=== PATIENT | male | born 1955 | race Caucasian/White ===

== ENCOUNTER 2021-12-01 11:03 | Outpatient (REF) | payer SELFPAY ==
[2021-12-01 11:09] LABS: MANUAL DIFF FLAG NO
[2021-12-01 11:24] LABS: Basophils Absolute Auto 0.1 X10*3/uL (0.0-0.2); Basophils Percent Auto 0.8 % (0-2); Eosinophils Absolute Auto 0.6 X10*3/uL (0.0-0.4); Eosinophils Percent Auto 5.9 % (0-4); Hemoglobin 14.7 g/dl (14.0-18.0); Imm Gran Abs Auto 0.03 X10*3/uL (0.00-0.03); Imm Gran Pct Auto 0.3 % (0.0-0.4); Lymphocytes Percent Auto 20.1 % (20-40); Mean Corpuscular HGB Conc 32.7 g/dl (31.0-36.0); Mean Corpuscular Hemoglobin 30.3 pg (27.0-33.0); Mean Corpuscular Volume 92.8 fL (80.0-98.0); Mean Platelet Volume 12.5 fL (9.4-12.4); Monocytes Percent Auto 10.4 % (2-11); Neutrophils Absolute Auto 6.1 x10*3/uL (2.0-8.3); Neutrophils Percent Auto 62.5 % (45-73); Platelet Count 237 X10*3/uL (160-400); Red Blood Count 4.85 X10*6/uL (4.60-5.80); Red Cell Distribution Width 12.5 % (11.0-16.0); White Blood Count 9.8 X10*3/uL (4.8-10.8)
[2021-12-01 11:34] LABS: Estimated Average Glucose 111 mg/dL; Hemoglobin A1c % 5.5 %
[2021-12-01 11:48] LABS: Appearance Urine CLEAR; Color Urine STRAW; Glucose Urine UA NEG (NEG); Leukocyte Esterase Urine NEG (NEG); Nitrite Urine NEG (NEG); Urine Blood NEG (NEG); Urine Ketones NEG (NEG); Urine Protein NEG (NEG-TRACE)
[2021-12-01 12:04] LABS: Creatinine Urine 66.58 mg/dL; Microalbum/Creatinine Ratio Ur 10.5 ug/mg cr
[2021-12-01 12:18] LABS: Alanine Aminotransferase 17 U/L (0-40); Albumin Level 3.8 g/dL (3.5-5.0); Alkaline Phosphatase 68 U/L (39-117); Anion Gap 15 (12-20); Aspartate Amino Transferase 20 U/L (5-37); Bilirubin Total 0.4 mg/dL (0.0-1.0); Blood Urea Nitrogen 20 mg/dL (9-16); Carbon Dioxide 23 mmol/L (22-29); Chloride 106 mmol/L (96-108); Estimated Glomerular Filt Rate > 60; Glucose Fasting 100 mg/dL (60-99); Potassium 4.6 mmol/L (3.3-5.1); Sodium 139 mmol/L (135-145); Total Protein 6.7 g/dL (6.5-8.0)
== END 2021-12-01 11:04 | disposition home or self-care (01) ==
LOC: HO.LNP 11:03
PROVIDERS: Visit Provider Internal Medicine
DX: Z00.00 Encounter for general adult medical examination without abnormal findings (principal); Z12.5 Encounter for screening for malignant neoplasm of prostate; I10 Essential (primary) hypertension; R73.03 Prediabetes
CPT/HCPCS: 80053; 81003; 82043; 83036; 84153; 85025

== ENCOUNTER 2022-11-30 11:42 | Outpatient (REF) | payer MEDICAID, SELFPAY ==
[2022-11-30 11:46] LABS: MANUAL DIFF FLAG NO
[2022-11-30 12:17] LABS: Basophils Absolute Auto 0.1 X10*3/uL (0.0-0.2); Eosinophils Absolute Auto 0.7 X10*3/uL (0.0-0.4); Eosinophils Percent Auto 6.8 % (0-4); Hematocrit 48.6 % (42.0-52.0); Imm Gran Abs Auto 0.04 X10*3/uL (0.00-0.03); Imm Gran Pct Auto 0.4 % (0.0-0.4); Lymphocytes Absolute Auto 2.3 X10*3/uL (1.2-4.9); Lymphocytes Percent Auto 23.5 % (20-40); Mean Corpuscular HGB Conc 32.9 g/dl (31.0-36.0); Mean Corpuscular Hemoglobin 30.4 pg (27.0-33.0); Mean Corpuscular Volume 92.2 fL (80.0-98.0); Mean Platelet Volume 11.9 fL (9.4-12.4); Monocytes Percent Auto 10.1 % (2-11); Neutrophils Absolute Auto 5.8 x10*3/uL (2.0-8.3); Neutrophils Percent Auto 58.2 % (45-73); Platelet Count 242 X10*3/uL (160-400); Red Blood Count 5.27 X10*6/uL (4.60-5.80); Red Cell Distribution Width 12.8 % (11.0-16.0); White Blood Count 9.9 X10*3/uL (4.8-10.8)
[2022-11-30 12:20] LABS: Appearance Urine Clear; Color Urine Yellow; Glucose Urine UA Negative (Negative); Leukocyte Esterase Urine Negative (Negative); Nitrite Urine Negative (Negative); PH 6.5 (5.0-9.0); Specific Gravity - Urine 1.015 (1.005-1.025); Urine Blood Negative (Negative); Urine Ketones Negative (Negative); Urine Protein Negative (Neg-Trace)
[2022-11-30 12:46] LABS: Alanine Aminotransferase 14 U/L (0-40); Albumin Level 3.9 g/dL (3.5-5.0); Alkaline Phosphatase 59 U/L (39-117); Anion Gap 11 (12-20); Aspartate Amino Transferase 17 U/L (5-37); Blood Urea Nitrogen 12 mg/dL (9-16); Calcium 9.2 mg/dL (8.4-10.2); Carbon Dioxide 30 mmol/L (22-29); Chloride 104 mmol/L (96-108); Cholesterol 183 mg/dL; Estimated Glomerular Filt Rate > 60; Glucose Fasting 112 mg/dL (60-99); HDL Cholesterol 51 mg/dL; LDL Cholesterol Calculated 111 mg/dl; Potassium 4.3 mmol/L (3.3-5.1); Sodium 141 mmol/L (135-145); Total Protein 6.6 g/dL (6.5-8.0); Triglycerides 106 mg/dL
[2022-11-30 12:59] LABS: Creatinine Urine 72.45 mg/dL
[2022-11-30 13:08] LABS: PSA,Total (Free>4and<10) 2.72 ng/mL (0.00-4.00)
[2022-11-30 14:01] LABS: Estimated Average Glucose 120 mg/dL; Hemoglobin A1c % 5.8 %
== END 2022-11-30 11:43 | disposition home or self-care (01) ==
LOC: HO.LNP 11:42
PROVIDERS: Visit Provider Internal Medicine
DX: Z12.5 Encounter for screening for malignant neoplasm of prostate (principal); I10 Essential (primary) hypertension; R73.03 Prediabetes
CPT/HCPCS: 80053; 80061; 81003; 82043; 83036; 84153; 85025

== ENCOUNTER 2023-04-08 16:10 | Outpatient (REF) | payer BC, SELFPAY ==
--- NOTE | ~2023-04-08 | XR_ITS ---
EXAMINATION: XR CHEST CLINICAL INFORMATION: Wheezing COMPARISON: None available. TECHNIQUE: 2 views of the chest were obtained. FINDINGS: The cardiac silhouette is slightly enlarged. This appears increased in size from 2012 exam. Hilar and mediastinal contours are unremarkable. The lungs are clear. No pleural effusion or pneumothorax. Degenerative changes of the spine. XR/XR chest 2V IMPRESSION: Slightly enlarged cardiac silhouette.
== END 2023-04-08 16:11 | disposition home or self-care (01) ==
LOC: HO.XRAY 16:10
PROVIDERS: PCP Internal Medicine; Visit Provider Internal Medicine
DX: R06.2 Wheezing (principal)
CPT/HCPCS: 71046

== ENCOUNTER 2023-05-21 12:53 | Outpatient (AMB) | payer BC, SELFPAY ==
[2023-05-21 13:01] VITALS: BP 114/70; PULSE 62; O2SAT 96; BMI 32.1
--- NOTE | 2023-05-21 13:01 | MHC.OFFVIS ---
Intake Vital Signs 05/21/23 13:01 Height 5 ft 7 in Weight 205 lb 0.478 oz BMI 32.1 BP 114/70 Blood Pressure Location Lt brachial Position Sitting Pulse 62 Pulse Source Pulse Oximeter Pulse Oximetry (%) 96 Oxygen Delivery Method Room Air Intake Visit Reasons: Wheezing Intake Note: New patient seen today for night time wheezing. Patient has reported Covid + in May 2022 and noticed the wheeze at bedtime. He was also diagnosed with afib in April of 2023. Reports he is physically active without any resp. distress. Radiology Equipment Servicer Required: No Biofuels Research Scientist: Biofuels Research Scientist offered & declined Accompanied by: Self / Same As Patient Allergies No Known Allergies [No Known Allergies*] Allergy (Unverified 07/25/20 15:24) bee sting Allergy (Unknown, Uncoded 05/21/23 13:09) swelling doritos chips Adverse Reaction (Unknown, Uncoded 05/21/23 13:09) lower extremity edema, rectal bleeding Medication List - Last Reconciled 05/21/23 by iCara Rehman LPN amlodipine 10 mg PO DAILY carvedilol 25 mg PO BID tamsulosin 0.4 mg PO BID valsartan-hydrochlorothiazide 320-12.5 mg 1 tab PO DAILY HPI Wheezing HPI Details Bradley is a pleasant 67 year old male, 20 year pipe smoker, with recent diagnosis of atrial fibrillation on xarelto. Today he presents for pulmonary evaluation. He was referred by PCP for wheezing which patient noticed after having COVID in September 2022. Patient states he only has wheezing at night when laying down. He was prescribed steroids in December with no change and antibiotics at the end of January with some improvements and notable decrease in wheeze. Previously he reported nightly wheezing and after antibiotics he states wheezing 2-3 times per week. He denies any other symptoms when wheezing occurs. He does state that with position changes the wheezing dissipates. At baseline he is quite active and denies any dyspnea. He reported issues with blood pressure control over the past years and now on multiple medication regimen with good control but has noticed bilateral lower extremity swelling over the past six weeks. He has an echo scheduled this afternoon and will follow up with cardiology at the end of June. He denies any personal or family history of lung conditions. 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 [facility] Social History (Updated 05/21/23 @ 13:14 by Ciara Rehman LPN) Tobacco use type: Pipe Years Smoked: 20 years Review of Systems Const Denies chills, Denies excessive sweating, Denies fever(s), Denies headache(s) and Denies night sweats Eyes Denies dry eyes, Denies irritation and Denies itchy eyes ENT Reports Normal hearing present, Denies headache(s), Denies nasal congestion, Denies nasal discharge, Denies post nasal drip and Denies sore throat Card Denies chest pain, Denies chest pain at rest, Denies chest pain with activity, Denies leg edema, Denies dyspnea, Denies dyspnea on exertion, Denies orthopnea and Denies paroxysmal nocturnal dyspnea Resp Denies chest congestion, Denies cough, Denies excessive phlegm production, Denies pain on inspiration, Denies pain with cough, Denies dyspnea, Denies dyspnea on exertion and Denies stridor Musc Denies myalgias Neuro Reports Normal hearing present and Denies headache(s) Endo Denies excessive sweating Jed/Lymph Denies lymphadenopathy Aller/Immun Denies itchy eyes and Denies seasonal rhinorrhea Physical Exam Vital Signs: Last Vital Signs Pulse 62 05/21/23 13:01 BP 114/70 05/21/23 13:01 Pulse Ox 96 05/21/23 13:01 Oxygen Delivery Method Room Air 05/21/23 13:01 BMI result Body Mass Index 32.1 Const General: cooperative, healthy appearing, comfortable, no acute distress, well developed and alert Orientation/consciousness: patient oriented x3 Limitations: no limitations HEENT Head: Yes normal to inspection, Yes normocephalic and Yes atraumatic Ears: hearing grossly normal bilaterally and external ears normal Eyes General: appearance normal, both eyes and all related structures Eyelids: Yes eyelids normal Sclerae: sclerae normal EOM: EOMs intact bilaterally Neck Neck: Yes normal visual inspection and Yes no lymphadenopathy Lymphatic: no lymphadenopathy noted Chest Chest palpation & inspection: normal inspection of the chest Resp Effort & Inspection: normal respiratory effort, able to speak in complete sentences, no audible wheezes, no cough, no stridor, not tachypneic, no tripod positioning and no use of accessory muscles Auscultation: clear to auscultation bilaterally Cardio Jugular venous distension: no JVD Rate: regular rate Rhythm: regular rhythm Skin Other: warm, dry General skin exam: no rashes or lesions noted Neuro General: patient oriented x3 Cranial nerves: Yes Normal hearing present Cognition (Neuro): normal cognition Gait exam (Neuro): Normal gait present Extrem Other: 1+ pitting edema bilateral lower extremities General: Yes normal to inspection, Yes capillary refill normal, Yes no clubbing, cyanosis or edema and Yes no pedal edema Psych Appearance: grossly normal and well kempt Speech and movement: Normal speech and movement present and Clear speech present Affect: normal affect Attitude: cooperative Thought process: Normal thought process present Thought content: Normal thought content present Insight: Good insight present (Psych) Judgement: Good judgement present (Psych) Assessment & Plan Assessment & Plan (1) Wheezing: Code(s): R06.2 - Wheezing (2) Personal history of tobacco use: Code(s): Z87.891 - Personal history of nicotine dependence Plan Will send Bradley for PFT to see if there is an obstructive defect that could explain wheezing and chest CT, given his 20 year smoking history. All questions answered and patient is in agreement of plan. Will follow up to review results. Orders: Orders CT chest wo IV con 05/21/23 Z87.891 - Personal history of nicotine dependence PFT pulmonary function test 05/21/23 R06.2 - Wheezing, Z87.891 - Personal history of nicotine dependence Coding Level of Care Code New Pt Level 4 (57852) Diagnoses Wheezing R06.2 Personal history of tobacco use Z87.891
== END 2023-05-21 13:41 | disposition home or self-care (01) ==
PROVIDERS: PCP Internal Medicine; Visit Provider Nurse Practitioner Family
DX: R06.2 Wheezing (principal); Z87.891 Personal history of nicotine dependence
CPT/HCPCS: 99204

== ENCOUNTER → 2023-05-21 14:09 | Outpatient (REF) | payer BC, SELFPAY ==
--- NOTE | 2023-05-21 14:11 | CA_ITS ---
Transthoracic Echocardiogram Patient (Last, First, Middle): Bradley Roque L Gender: Male Date of : 1955 Age: 67 Procedure Date: 05/21/2023 Procedure Type: Transthoracic Echocardiogram Location: OP Height: 170.18 cm Weight: 92.99 kg BSA: 2.04 m2 Heart Rate: bpm BP: 140 / 90 mmHg Chief Engineer Production: TO Referring MD: Javier Ramos MD Chemical Mixer: Deepak Shirley MD Symptoms: AFIB Study Quality: Fair ECG Rhythm: Atrial Fibrillation Conclusions: - 1. Normal LV ejection fraction with mild LVH with LVEF of 55 60% 2. Moderately dilated left atrium 3. Trivial aortic and mild mitral regurgitation 4. Mildly elevated right ventricular systolic pressure with mildly elevated right atrial pressures 5. Mildly dilated ascending aorta at 4.2 cm 6. No gross pericardial effusion Findings Left Ventricle Normal left ventricular size and systolic function. There is mildly increased left ventricular wall thickness. The visually estimated ejection fraction is between 55-60%. Diastolic function is indeterminate on the basis of available data. Right Ventricle Mildly increased right ventricular cavity size. There is normal right ventricular systolic function. Atria The left atrium is moderately dilated. There is no evidence of interatrial shunt. The right atrium is mildly dilated. Aortic Valve There is mild calcification of the aortic valve. There is no aortic valve stenosis. There is trace (trivial) aortic valve regurgitation. Mitral Valve There is mild anterior and posterior mitral leaflet thickening. There is mild mitral valve regurgitation. There is no mitral valve stenosis. Pulmonic Valve The pulmonic valve is likely normal. Tricuspid Valve Normal tricuspid valve structure. There is mild tricuspid valve regurgitation. Mildly elevated right atrial pressure. Mild pulmonary hypertension is present. Great Vessels The pulmonary artery was not well visualized. There is mild dilatation of the ascending aorta measuring 4.20 cm. Venous The inferior vena cava is moderately dilated and collapses greater than 50% with inspiration. Pericardium/Pleural There is no evidence of pericardial effusion. Prior Study Comparison No prior study available for comparison. Measurements 2D Linear Measurements IVSd: 1.34 0.6-0.9/0.6-1.0 cm LVIDd: 4.73 3.9-5.3/4.2-5.9 cm LVIDd Index: 2.32 2.4-3.2/2.2-3.1 cm/m2 LVIDs: 3.63 2.0-3.6 cm LVPWd: 1.17 0.7-1.1 cm LA Diam: 4.20 2.7-3.8/3.0-4.0 cm LAIDs Index: 2.06 1.5-2.3 cm/m2 LV Mass: 284.63 67-162/88-224 g LV Mass Index: 139.52 43-95/49-115 g/m2 LVOT Diam: 2.20 3.0+(-)1.3 cm 2D Systolic Function EF 4C: 55.20 >55% EF 2C: 55.10 >55% EF BiP: 55.90 >55% Mitral Valve MV Pk E: 0.63 MV Decel Time: 195.00 E'Lateral: 10.80 E'Medial: 5.77 E/E' Med: 11.00 E/E' Lat: 5.90 PHT: 57.00 MVA PHT: 3.86 Decel Davis: 3.25 Aortic Valve AoV Pk Thaddeus: 1.07 AoV Mn Thaddeus: 0.76 AoV VTI: 0.24 AoV Pk Grad: 5.00 Aov Mn Grad: 3.00 JAYY Cont.VTI: 2.12 LVOT LVOT Pk Thaddeus: 0.58 LVOT Mn Thaddeus: 0.39 LVOT VTI: 0.13 LVOT Pk Grad: 1.00 LVOT Mn Grad: 1.00 LVOT Diam: 2.20 LVOT Area: 3.80 Diastolic Function MV Pk E: 0.63 E'Medial: 5.77 E/E' Med: 11.00 E' Laterial: 10.80 E/E' Lat: 5.90 Right Ventricle TAPSE (mm): 20.60 TVS' Thaddeus: 10.00 Tricuspid Valve TR Pk Thaddeus: 2.82 TR Pk Grad: 32.00 RA Press: 8.00 RVSP: 40.00 Great Vessels Aorta Sinus of Valsalva: 3.89 2.0-3.[address] [place]: 2.97 1.7-3.4 cm Ao Asc: 4.20 2.1-3.4 cm Updated in Other Vendor System with Status of Final Deepak Shirley MD electronically signed on 05/22/2023 2:33:19 PM with status of Final
== END ==
LOC: HO.CARD 14:09
PROVIDERS: PCP Internal Medicine; Visit Provider Internal Medicine
DX: I48.91 Unspecified atrial fibrillation (principal); R06.2 Wheezing; Z87.891 Personal history of nicotine dependence
CPT/HCPCS: 93306

== ENCOUNTER → 2023-05-21 14:11 | Outpatient (BNV) | payer BC, SELFPAY | PROVIDERS: PCP Internal Medicine; Visit Provider Internal Medicine Cardiovascular Disease | DX: I34.0 Nonrheumatic mitral (valve) insufficiency (principal); I48.91 Unspecified atrial fibrillation | CPT/HCPCS: 93306 ==

== ENCOUNTER 2023-05-28 08:32 | Outpatient (REF) | payer BC, SELFPAY ==
--- NOTE | 2023-05-28 09:27 | PFT_ITS ---
FLOWS: 1. FEV1 of 110% of predicted at 3.45 L. 2. FVC 100% of predicted at 4.10 L. 3. FEV1 to FVC ratio of 0.84. 4. No bronchodilator response. LUNG VOLUMES: 1. Total lung capacity 101% of predicted at 6.49 L. 2. Residual volume 96% of predicted at 2.13 L. 3. Slow vital capacity 103% of predicted at 4.36 L. 4. Expiratory reserve volume 39% of predicted at 0.45 L. 5. Diffusion capacity is normal. IMPRESSION: No obstructive or restrictive ventilatory defect. No bronchodilator response. Decreased expiratory reserve volume suggests extrathoracic restriction likely secondary to abdominal obesity. Kwaku Figueredo MD AP/MODL / [id number]
== END 2023-05-28 08:33 | disposition home or self-care (01) ==
LOC: HO.RESP 08:32
PROVIDERS: PCP Internal Medicine; Visit Provider Nurse Practitioner Family
DX: R06.2 Wheezing (principal); Z87.891 Personal history of nicotine dependence
CPT/HCPCS: 94010; 94727; 94729

== ENCOUNTER 2023-05-28 09:21 | Outpatient (AMB) | payer BC, SELFPAY ==
[2023-05-28 09:32] VITALS: BP 120/70; PULSE 59; O2SAT 98; BMI 31.8
--- NOTE | 2023-05-28 09:32 | A.OFFVIS_ITS ---
Intake Vital Signs 05/28/23 09:32 Height 5 ft 7 in Weight 202 lb 13.204 oz BMI 31.8 BP 120/70 Blood Pressure Location Lt brachial Position Sitting Pulse 59 Pulse Source Pulse Oximeter Pulse Oximetry (%) 98 Oxygen Delivery Method Room Air Intake Visit Reasons: Same day PFT Mosaic Worker Required: No Investment Counselor: Investment Counselor offered & declined Accompanied by: Self / Same As Patient Allergies No Known Allergies [No Known Allergies*] Allergy (Unverified 05/28/23 09:36) bee sting Allergy (Unknown, Uncoded 05/28/23 09:36) swelling doritos chips Adverse Reaction (Unknown, Uncoded 05/28/23 09:36) lower extremity edema, rectal bleeding Medication List - Last Reconciled 05/28/23 by Ciara Rehman LPN amlodipine 10 mg PO DAILY carvedilol 25 mg PO BID tamsulosin 0.4 mg PO BID valsartan-hydrochlorothiazide 320-12.5 mg 1 tab PO DAILY HPI Same day PFT HPI0 Details Bradley is a pleasant 67 year old male, 20 year pipe smoker, with recent diagnosis of atrial fibrillation on xarelto. He was referred by PCP for w heezing which patient noticed after having COVID in September 2022 that is only present in supine position. He was prescribed steroids in December with no change and antibiotics at the end of January with some improvements and notable decrease in wheeze. Today he is here to review PFT results. He continues to deny any shortness of breath or decrease in activity. He again noted bilateral lower extremity edema. He had an echocardiogram last week and has follow up scheduled with cardiology in June to review. He did note that his PCP was going to increase in HCTZ. [facility] Social History Tobacco use type: Pipe Years Smoked: 20 years Review of Systems Const Denies chills, Denies excessive sweating, Denies fever(s), Denies headache(s) and Denies night sweats Eyes Denies dry eyes, Denies irritation and Denies itchy eyes ENT Reports Normal hearing present, Denies headache(s), Denies nasal congestion, Denies nasal discharge, Denies post nasal drip and Denies sore throat Card Denies chest pain, Denies chest pain at rest, Denies chest pain with activity, Denies dyspnea, Denies dyspnea on exertion, Denies orthopnea and Denies paroxysmal nocturnal dyspnea Resp Denies chest congestion, Denies cough, Denies excessive phlegm production, Denies pain on inspiration, Denies pain with cough, Denies dyspnea, Denies dyspnea on exertion and Denies stridor Musc Denies myalgias Neuro Reports Normal hearing present and Denies headache(s) Endo Denies excessive sweating Jed/Lymph Denies lymphadenopathy Aller/Immun Denies itchy eyes and Denies seasonal rhinorrhea Physical Exam Vital Signs: Last Vital Signs Pulse 59 05/28/23 09:32 BP 120/70 05/28/23 09:32 Pulse Ox 98 05/28/23 09:32 Oxygen Delivery Method Room Air 05/28/23 09:32 BMI result Body Mass Index 31.8 Const General: cooperative, healthy appearing, comfortable, no acute distress, well developed and alert Orientation/consciousness: patient oriented x3 Limitations: no limitations HEENT Head: Yes normal to inspection, Yes normocephalic and Yes atraumatic Ears: hearing grossly normal bilaterally and external ears normal Eyes General: appearance normal, both eyes and all related structures Eyelids: Yes eyelids normal Sclerae: sclerae normal EOM: EOMs intact bilaterally Neck Neck: Yes normal visual inspection and Yes no lymphadenopathy Lymphatic: no lymphadenopathy noted Chest Chest palpation & inspection: normal inspection of the chest Resp Effort & Inspection: normal respiratory effort, able to speak in complete sentences, no audible wheezes, no cough, no stridor, not tachypneic, no tripod positioning and no use of accessory muscles Auscultation: clear to auscultation bilaterally Cardio Jugular venous distension: no JVD Rate: regular rate Rhythm: regular rhythm Skin Other: warm, dry General skin exam: no rashes or lesions noted Neuro General: patient oriented x3 Cranial nerves: Yes Normal hearing present Cognition (Neuro): normal cognition Gait exam (Neuro): Normal gait present Extrem Other: 1-2+ pitting edema bilateral lower extremities Psych Appearance: grossly normal and well kempt Speech and movement: Normal speech and movement present and Clear speech present Affect: normal affect Attitude: cooperative Thought process: Normal thought process present Thought content: Normal thought content present Insight: Good insight present (Psych) Judgement: Good judgement present (Psych) Results Reviewed Results Reviewed: Assessment & Plan Assessment & Plan (1) Wheezing: Code(s): R06.2 - Wheezing (2) Personal history of tobacco use: Code(s): Z87.891 - Personal history of nicotine dependence (3) Bilateral lower extremity edema: Code(s): R60.0 - Localized edema Plan Reviewed PFT results with patient, report above. No evidence of obstructive or restrictive pattern with normal lung volumes and normal DLCO. His symptoms are most likely related to underlying cardiac etiology. He has a follow up scheduled at the end of June with cardiology for consultation. At the last visit a chest CT was ordered due to his occupational exposure and smoking history, but has not been scheduled yet. Once performed patient will follow up to review results. All questions were answered and patient is in agreement of plan. Coding Level of Care Code Est Pt Level 4 (89581) Diagnoses Wheezing R06.2 Personal history of tobacco use Z87.891 Bilateral lower extremity edema R60.0
== END 2023-05-28 09:54 | disposition home or self-care (01) ==
PROVIDERS: PCP Internal Medicine; Visit Provider Nurse Practitioner Family
DX: R06.09 Other forms of dyspnea (principal)
CPT/HCPCS: 94060; 94727; 94729; 99214

== ENCOUNTER 2023-07-21 10:12 | Outpatient (AMB) | payer BC, SELFPAY ==
[2023-07-21 10:13] VITALS: BP 130/82; PULSE 63; BMI 31.8
--- NOTE | 2023-07-21 10:13 | MHC.OFFVIS ---
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: No Allergies No Known Allergies [No Known Allergies*] Allergy (Unverified 05/28/23 09:36) bee sting Allergy (Unknown, Uncoded 05/28/23 09:36) swelling doritos chips Adverse Reaction (Unknown, Uncoded 05/28/23 09:36) lower extremity edema, rectal bleeding Medication List - Last Reconciled 07/21/23 by Deepak Shirley MD amlodipine 10 mg PO DAILY carvedilol 25 mg PO BID rivaroxaban (Xarelto) 20 mg PO DAILY tamsulosin 0.4 mg PO BID valsartan-hydrochlorothiazide 160-12.5 mg 1 tab PO DAILY HPI HPI Comments History of Present Illness Details Thank you for referring Bradley in cardiology consultation today for newly detected persistent atrial fibrillation for last 2 months or so. He is a pleasant 67-year-old male with longstanding history of hypertension controlled with multiple medications. He is in excellent physical shape prior to getting COVID last May. He said he could do backpacking and exercise and climb mountains without any restriction except for he would notice some warm up. Being on carvedilol but once he was continuing to exercise he would feel well. Last year in May got COVID and subsequently started having respiratory symptoms of exertional shortness of breath. Initially for about 4-6 weeks he had significant symptoms. He also had intermittent wheezing. He was treated antibiotics and steroids. However symptoms persisted. He said he had multiple EKGs during that time and there was no evidence of atrial fibrillation. About 2 months ago he had EKG performed which showed atrial fibrillation which as per him is new onset. Never had this findings in the past. He subsequent echocardiogram showed normal LV ejection fraction 55-60% with mild LVH with moderate left atrial enlargement was mildly dilated ascending aorta 4.2 cm a mildly elevated right ventricle systolic pressure. Since being diagnosed with COVID is notice exertional shortness of breath when he goes up hill. With his routine other activities he does not get significant shortness of breath. Denies any orthopnea, PND, leg edema. Denies any exertional chest discomfort. Denies lightheadedness, syncope, irregular heartbeat, palpitations, fast heart rate. He was started on Xarelto 2 months ago when detected with AFib and has been taking it religiously since then. No bleeding issues or neurologic events [facility] Medical History (Updated 07/21/23 @ 10:47 by Deepak Shirley MD) HTN (hypertension) Persistent atrial fibrillation Social History Tobacco use type: Pipe Years Smoked: 20 years Review of Systems Const Denies chills, Denies daytime sleepiness, Denies fatigue, Denies fever(s), Denies frequent falls, Denies poor appetite, Denies snoring, Denies stops breathing during sleep, Denies weakness, Denies weight gain and Denies weight loss Eyes Denies loss of vision ENT Denies dizziness and Denies hearing loss Card Denies chest pain, Denies claudication, Denies leg edema, Denies lightheadedness, Denies palpitations, Denies dyspnea, Denies dyspnea on exertion and Denies orthopnea Resp Denies cough, Denies excessive phlegm production, Denies dyspnea, Denies dyspnea on exertion, Denies snoring and Denies wheezing GI Denies abdominal pain, Denies hematochezia, Denies change in bowel habits, Denies nausea and Denies vomiting Denies dysuria and Denies urinary frequency Musc Denies arthralgias, Denies muscle weakness, Denies numbness and Denies other (frequent falls) Skin/Breast Denies nail changes and Denies rash Neuro Denies Abnormal speech present, Denies dizziness, Denies frequent falls, Denies loss of vision, Denies memory loss, Denies numbness and Denies weakness Psych Denies depression and Denies memory loss Endo Denies fatigue and Denies palpitations Jed/Lymph Reports easy bruising and Reports other (anemia) Aller/Immun Denies wheezing Physical Exam Vital Signs: Last Vital Signs Pulse 63 07/21/23 10:13 BP 130/82 07/21/23 10:13 BMI result Body Mass Index 31.8 Const General: cooperative, comfortable, no acute distress, well developed, alert, awake, Physically active and well groomed Nutritional Appearance: average body habitus and well nourished Orientation/consciousness: patient oriented x3 Limitations: no limitations HEENT Head: Yes normocephalic and Yes atraumatic Neck Neck: Yes trachea midline, Yes supple and Yes no JVD Resp Effort & Inspection: normal respiratory effort Auscultation: clear to auscultation bilaterally Cardio Jugular venous distension: no JVD Rhythm: abnormal rhythm irregularly irregular Heart sounds: S1 normal heart sound present, S2 normal heart sound present, no click, no gallops, no murmurs and no rubs Peripheral pulses: Peripheral pulses 2+ throughout GI Auscultation: normal bowel sounds Skin General skin exam: no rashes or lesions noted Neuro General: patient oriented x3 and no focal motor deficits Speech: No Abnormal speech present Extrem General: Yes no clubbing, cyanosis or edema Psych Appearance: grossly normal Office Procedures EKG Details: EKG shows atrial fibrillation with controlled ventricular response with PVCs with right bundle-branch block and left axis deviation [id number], Complete Assessment & Plan Assessment & Plan (1) Persistent atrial fibrillation: Code(s): I48.19 - Other persistent atrial fibrillation Plan: Persistent atrial fibrillation in this well conditioned middle-aged man with symptoms of exertional shortness of breath. Atrial fibrillation was detected about 3 months ago and subsequent echocardiogram shows at least moderate left atrial enlargement. Duration of atrial fibrillation is exactly unclear but left atrial enlargement underlying may suggest that AFib might have been persistent for some months and/or left atrial enlargement could be related to longstanding hypertension. However given left atrial enlargement likelihood of pursuing rhythm control would be more difficult. This was discussed with him. I had a long discussion about pathophysiology of atrial fibrillation and subsequent complication related to long-term atrial fibrillation. We discussed about data to suggest that pursuing rhythm control approach at his age group in a new onset atrial fibrillation is more favorable for long-term outcomes. Given his left atrial enlargement he will require antiarrhythmic drug support. Will therefore start him on Multaq 400 mg b.i.d. at the same time reduce carvedilol to 12.5 mg b.i.d. due to negative chronotropic effect of Multaq therapy. Subsequently followed by synchronized cardioversion. We discussed the risks, benefits, alternatives to synchronized cardioversion. Understands agrees. Future treatment based on a response to cardioversion as well as symptom improvement. This was discussed in details with him. CHADSVASc score of 2 with left atrial enlargement, should pursue lifelong oral anticoagulation therapy. This was discussed with him. Continue Xarelto at current dose. Semi annual renal function test should be pursued. (2) HTN (hypertension): Code(s): I10 - Essential (primary) hypertension Plan: Hypertension which is long-term and currently on quadruple therapy for blood pressure management which is well controlled. For now recent carvedilol by half the dose. Advised to monitor blood pressure at home and maintain a log. A blood pressure starts rising can maximize valsartan hydrochlorothiazide therapy. Importance of good blood pressure control was discussed. Low-salt diet was discussed. (3) SOB (shortness of breath) on exertion: Code(s): R06.02 - Shortness of breath Plan: Shortness of breath on exertion in this gentleman with risk factors of hypertension, could be related to atrial fibrillation although he says his symptoms have improved since being diagnosed with atrial fibrillation which is a little surprising. However also could be due to ischemic heart disease. Once we were zoom sinus rhythm will proceed with exercise myocardial perfusion imaging. This was discussed with him in details. Follow up in the clinic in 6 weeks time with me. Orders: Orders Cardioversion 2 Weeks I48.19 - Other persistent atrial fibrillation CA stress test Today R06.02 - Shortness of breath ECG 3 day holter monitor 4 Weeks I48.19 - Other persistent atrial fibrillation NM cardiolite stress test 2 Weeks R06.02 - Shortness of breath, R07.9 - Chest pain, unspecified Medications: New dronedarone (Multaq) must administer with a meal/food 400 mg PO BID 60 tabs 2RF I48.19 - Other persistent atrial fibrillation Changed From carvedilol must administer with a meal/food 25 mg PO BID I48.19 - Other persistent atrial fibrillation To carvedilol must administer with a meal/food 12.5 mg PO BID I48.19 - Other persistent atrial fibrillation Coding Level of Care Code New Pt Level 4 (02545) Diagnoses Persistent atrial fibrillation I48.19 HTN (hypertension) I10 SOB (shortness of breath) on exertion R06.02 CPT Codes EKG - CPT: 91359-[id number], Complete ([id number])
== END 2023-07-21 10:51 | disposition home or self-care (01) ==
LOC: HO.HCSM 10:12
PROVIDERS: PCP Internal Medicine; Referring Provider Internal Medicine; Visit Provider Internal Medicine Cardiovascular Disease
DX: I48.19 Other persistent atrial fibrillation (principal); I10 Essential (primary) hypertension; R06.02 Shortness of breath
CPT/HCPCS: 93010; 99204

== ENCOUNTER 2023-07-21 13:10 | Outpatient (REF) | payer BC, SELFPAY ==
--- NOTE | ~2023-07-21 | CT_ITS ---
EXAMINATION: CT CHEST WITHOUT CONTRAST CLINICAL INFORMATION: History of nicotine dependence. COMPARISON: None available. TECHNIQUE: Multidetector volumetric CT imaging of the chest was done. Axial MIP volume rendering provided. Sagittal and coronal reformatted images were obtained. This CT examination was performed using dose optimization techniques as appropriate, variously including the following: *Automated exposure control *Adjustment of mA and/or kV according to patient size (this includes techniques or standardized protocols for targeted exams where dose is matched to indication/reason for exam; i.e. 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 LUNGS: The lungs are clear with no evidence of inflammation or nodules. Multiple benign, calcified granulomas are seen within the right upper and lower lobes (7:123, 165, 170 and 283). MEDIASTINUM: The thyroid is unremarkable. There is no thoracic aortic aneurysm. There are mild atherosclerotic calcifications of the great vessel origins and thoracic aorta. No mediastinal or hilar lymphadenopathy is seen. CORONARY ARTERY CALCIFICATION: Mild. PLEURA: There is no pleural effusion. No pleural mass or thickening. AXILLA: No lymphadenopathy. There is moderate bilateral gynecomastia. UPPER ABDOMEN: Unremarkable. OSSEOUS STRUCTURES: There is multi-level marked lower thoracic and moderate upper lumbar spondylosis. At T11-T12, there is degenerative disc disease, with vacuum phenomenon. No acute or aggressive osseous abnormality is seen. CT/CT chest wo IV con IMPRESSION: 1. There are benign, calcified right lung granulomas. 2. No noncalcified nodule is seen. 3. There is no mass, infiltrate or groundglass opacity. 4. There are degenerative changes of the thoracolumbar spine, most pronounced at T11-T12. 5. There is moderate bilateral gynecomastia. Fleischner guidelines were followed.
== END 2023-07-21 13:11 | disposition home or self-care (01) ==
LOC: HO.CT 13:10
PROVIDERS: PCP Internal Medicine; Visit Provider Nurse Practitioner Family
DX: I48.19 Other persistent atrial fibrillation (principal); R06.02 Shortness of breath; I10 Essential (primary) hypertension; Z87.891 Personal history of nicotine dependence
CPT/HCPCS: 71250; 93005

== ENCOUNTER 2023-08-04 11:45 | Day surgery (SDC) | payer BC, SELFPAY ==
[2023-08-02 14:58] VITALS: BMI 31.6
--- NOTE | 2023-08-03 08:43 | HO.ANESPROP2 ---
Documented by User: Criss Araujo NP 08/03/23 08:46 HPI - Anesthesia Eval Consult details Narrative: 68yo M for Cardioversion Xarelto for afib PMFSH Active Problems Active Problems: All Active Problems (Updated 07/21/23 @ 10:47 by Deepak Shirley MD) SOB (shortness of breath) on exertion (Acute) Bilateral lower extremity edema (Acute) Personal history of tobacco use (Acute) Wheezing (Acute) HTN (hypertension) (Acute) Persistent atrial fibrillation (Acute) Past Medical History Medical History (Updated 09/28/23 @ 09:12 by Deepak Shirley MD) Paroxysmal atrial fibrillation Persistent atrial fibrillation HTN (hypertension) Surgical History Surgical History History of anterior cruciate ligament surgery H/O colonoscopy Hx of repair of right rotator cuff Social History Patient Tobacco Use Status: Never used Tobacco Tobacco use type: Pipe Years Smoked: 20 years Meds Allergies Allergy/AdvReac Type Severity Reaction Status Date / Time bee pollen [bee stings] Allergy Intermediate Swelling Verified 09/29/23 15:06 doritos chips AdvReac Intermediate lower Uncoded 08/02/23 14:52 extremity edema, rectal bleeding Home Medications Medication Instructions Recorded Confirmed Last Taken Type tamsulosin 0.4 mg capsule 0.4 mg PO BID 05/21/23 09/28/23 08/03/23 History Exam Exam Date and Time: August 03, 2023 0843 Height,Weight and Vital Signs: Height 5 ft 7 in Weight 91.626 kg Narrative Narrative: EKG 07/2023 atrial fibrillation with controlled ventricular response with PVCs with right bundle-branch block and left axis deviation ECHO 05/2023 Conclusions: - 1. Normal LV ejection fraction with mild LVH with LVEF of 55 60% 2. Moderately dilated left atrium 3. Trivial aortic and mild mitral regurgitation 4. Mildly elevated right ventricular systolic pressure with mildly elevated right atrial pressures 5. Mildly dilated ascending aorta at 4.2 cm 6. No gross pericardial effusion Assessment and Plan Assessment Anesthesia Assessment: Chart Reviewed Documented by User: Kiet Desir MD 09/30/23 18:57 PMFSH Past Medical History Medical History (Updated 09/28/23 @ 09:12 by Deepak Shirley MD) Paroxysmal atrial fibrillation Persistent atrial fibrillation HTN (hypertension) Functional capacity: independent ambulation Family History Family history of problems with anesthesia: No Surgical History Surgical History History of anterior cruciate ligament surgery H/O colonoscopy Hx of repair of right rotator cuff History of Problems with Anesthesia: No Social History Patient Tobacco Use Status: Never used Tobacco Tobacco use type: Pipe Years Smoked: 20 years Meds Allergies Allergy/AdvReac Type Severity Reaction Status Date / Time bee pollen [bee stings] Allergy Intermediate Swelling Verified 09/29/23 15:06 doritos chips AdvReac Intermediate lower Uncoded 08/02/23 14:52 extremity edema, rectal bleeding Home Medications Medication Instructions Recorded Confirmed Last Taken Type tamsulosin 0.4 mg capsule 0.4 mg PO BID 05/21/23 09/28/23 08/03/23 History Exam Airway Mallampati Class: III Loose/Missing/Broken Teeth: Yes Assessment and Plan Assessment Anesthesia Assessment: Anesthesia Plan Discussed Final Anesthetic Review Family History of Problems with Anesthesia: No History of Problems with Anesthesia: No NPO: Yes ASA Class: IV Final Preanesthetic Review: Meds/Allgs Chart Reviewed, Consent Obtained/Reviewed and Anes Risks/Benef Reviewed Patient Risk: Intermediate Procedure Risk: Intermediate Anesthetic Plan Anesthetic Plan: MAC: and Agree w/ Assess. and Plan Disposition: Standard PACU
--- NOTE | 2023-08-04 08:57 | MHC.SHP ---
Pre-Procedural Eval Section A Date of Service: 08/04/23 The patient is an INPATIENT: No Changes since office visit: Yes Changes in Medication and Yes Patient answered all questions; No Cold of Flu in the past 2 weeks and No New Medical Problems The History & Physical has been completed within 30 days and I have reviewed it.: Yes Section B Chief Complaint: afib Allergies: Allergies Allergy/AdvReac Type Severity Reaction Status Date / Time bee sting Allergy Intermediate swelling Uncoded 08/02/23 14:52 doritos chips AdvReac Intermediate lower Uncoded 08/02/23 14:52 extremity edema, rectal bleeding Plan I have reviewed the history and physical and performed a pertinent physical examination on my patient. No changes have occurred unless specified. Time Spent With Patient Time: Total time managing care of this patient today ____ minutes.
[2023-08-04 12:00] VITALS: BMI 31.5
[2023-08-04 12:06] VITALS: BP 133/73; PULSE 57; RESP 18; TEMP 36.1; O2SAT 97
[2023-08-04] MEDS: Lactated Ringers 1,000 ML 50 ML IVCONT (12:20)
--- NOTE | 2023-08-04 13:44 | ECG_ITS ---
Test Reason : post cardioversion Blood Pressure : / mmHG Vent. Rate : 041 BPM Atrial Rate : 041 BPM P-R Int : 240 ms QRS Dur : 156 ms QT Int : 520 ms P-R-T Axes : 000 -69 -32 degrees QTc Int : 429 ms Marked sinus bradycardia with 1st degree A-V block Right bundle branch block Left anterior fascicular block Bifascicular block Abnormal ECG When compared with ECG of 20-MAR-2002 16:57, MO interval has increased (RBBB and left anterior fascicular block) is now Present Referred By: Deepak Shirley Electronically Signed By:ALYSIA CHRISTIANSEN
--- NOTE | 2023-08-04 13:56 | HO.CARDIVERS ---
Cardioversion Procedure Note Cardioversion Date of Procedure: Today Ordering Provider: Myself Performing Provider: Myself Indication for Procedure: New onset persistent atrial fibrillation Pre-Op Diagnosis: Same Post-Op Diagnosis: Same Performed with Transesophageal Echo: No Consent: Verbal and Written consent was obtained from the patient before starting and after confirming oral anticoagulation use. The patient was made aware of the risk of synchronized cardioversion including benefits and alternatives Procedure: After consent obtained, cardioversion pads were attached in anteroposterior configuration and the patient was sedated by the anesthesia team. Once adequate sedation achieved, patient was delivered 200 joules of biphasic synchronized energy in anteroposterior configuration Complications: None Impression: Successful conversion to sinus bradycardia Recommendations: 1. 12 lead EKG 2. Continue Multaq and Xarelto 3. Reduce carvedilol to 6.25 mg b.i.d. 4. Follow up in the office after Holter
[2023-08-04 13:57] VITALS: BP 125/69; PULSE 46; RESP 15; TEMP 36.4; O2SAT 98
[2023-08-04 14:00] VITALS: BP 128/75; PULSE 67; RESP 15; O2SAT 98
[2023-08-04 14:05] VITALS: BP 131/85; PULSE 42; RESP 15; O2SAT 98
[2023-08-04 14:10] VITALS: BP 130/78; PULSE 44; RESP 15; O2SAT 98
[2023-08-04 14:25] VITALS: BP 139/78; PULSE 54; RESP 16; TEMP 36.3; O2SAT 96
== END 2023-08-04 14:51 | disposition home or self-care (01) ==
PROVIDERS: PCP Internal Medicine; Visit Provider Internal Medicine Cardiovascular Disease
PROC: 5A2204Z Restoration of Cardiac Rhythm, Single (ICD-10-PCS; principal; 2023-08-04 13:20)
DX: I48.19 Other persistent atrial fibrillation (principal); I10 Essential (primary) hypertension; Z79.01 Long term (current) use of anticoagulants
CPT/HCPCS: 92960; 93005

== ENCOUNTER → 2023-08-04 11:45 | Outpatient (BNV) | payer BC, SELFPAY | PROVIDERS: PCP Internal Medicine; Visit Provider Internal Medicine Cardiovascular Disease | DX: I48.19 Other persistent atrial fibrillation (principal) | CPT/HCPCS: 92960 ==

== ENCOUNTER → 2023-08-19 08:50 | Outpatient (REF) | payer BC, SELFPAY ==
--- NOTE | ~2023-08-19 | NM_ITS ---
EXERCISE MYOCARDIAL PERFUSION STUDY INDICATION: Shortness of breath, atrial fibrillation, assess for coronary disease and ischemia TECHNIQUE: The patient was brought in for an exercise perfusion study on 08/19/2023. Patient performed exercise as per Td protocol and was injected 30 mCi of sestamibi once target heart rate was achieved. Images were obtained using the SPECT gamma camera interlaced with the gating device. Images were obtained in supine position. Resting perfusion study was performed on 08/23/2023. Patient was administered 30 mCi of sestamibi intravenously at rest. Images were then obtained in supine position. Images were processed with the software and compared side to side in short axis, horizontal long axis and vertical long axis views. Total DLP 88mGy-cm. FINDINGS: Raw images were reviewed. The stress perfusion study showed diminished tracer uptake along the inferior wall from the basal to mid portions. There is improvement with CT attenuation correction suggestive of diaphragmatic attenuation artifact. The gated study shows normal LV systolic function with calculated LVEF of 61%. LV cavity is dilated in size. The gated study shows normal wall thickening and contraction of segments. Resting study shows diminished tracer uptake in the basal part of inferior wall as well as the apical inferior wall. There is improvement with CT attenuation correction suggesting diaphragmatic attenuation artifact. Gating at rest reveals normal wall motion with ejection fraction at 65%. The findings are consistent with fixed inferior perfusion defect suggestive of diaphragmatic attenuation artifact. No clear reversible defects. NM/NM cardiolite stress test IMPRESSION: 1. Myocardial perfusion imaging study shows no clear evidence of any ischemia or infarction. Fixed inferior defect suspected to be from diaphragmatic attenuation artifact. 2. Gated LVEF is seen during stress and 65% during rest. LV cavity appears dilated. 3. Transient ischemic dilatation not present. EKG component of the test reported separately.
--- NOTE | 2023-08-19 08:54 | CA_ITS ---
Acquisition Time: 2023-08-19 08:52:32 Total Exercise Time: 00:09:29 Test Indications: Dyspnea AFIB Medications: AMLODIPINE CARVEDILOL XARELTO TAMSULOSIN VALSARTAN/HCTZ Protocol: AYLEEN Max HR: 121 BPM 78% of Pred: 154 BPM Max BP: 144/080 mmHG Max Work Load: 10.8 METS Exercise stress test exercise 9 min 29 sec of Ayleen protocol unable to record peak HR due to artifact and quick correction in recovery, approximately 79% MPHR, with isolated PVCs, and ventricular bigeminy, withoiut anginal symptoms, with normotensive response to exercise, without EKG changes noted, Nuclear images pending. Test reviewed with Dr. Contreras. Significant artifact during peak exercise and not interpretable. Referred By: Deepak Shirley Overread By: BERNARDINO PETE
--- NOTE | 2023-08-19 08:54 | HM_ITS ---
* Total monitoring time about 3 days. * Underlying rhythm is sinus. Average ventricular rate 51/Min. Range 34 to 96/Min. Strips have lot of artifact. * Frequent supraventricular ectopy with a burden of 1.6%. * Frequent ventricular ectopy with a burden of 4.3%. Occasional couplets, triplets, bigeminy, trigeminy. Short runs noted. Longest 6 beats. Monomorphic. * No significant pauses or AV blocks. * Patient marker used in association with PVCs. MTDD
== END ==
LOC: HO.CARD 08:50
PROVIDERS: PCP Internal Medicine; Visit Provider Internal Medicine Cardiovascular Disease
DX: R07.9 Chest pain, unspecified (principal); I48.19 Other persistent atrial fibrillation; R06.02 Shortness of breath
CPT/HCPCS: 78452; 93017; 93242; A9500

== ENCOUNTER → 2023-08-19 09:00 | Outpatient (BNV) | payer BC, SELFPAY | PROVIDERS: PCP Internal Medicine; Visit Provider Internal Medicine | DX: I47.10 Supraventricular tachycardia, unspecified (principal) | CPT/HCPCS: 78452; 93016; 93018; 93244 ==

== ENCOUNTER 2023-09-28 08:49 | Outpatient (AMB) | payer BC, SELFPAY ==
[2023-09-28 08:50] VITALS: BP 136/80; PULSE 51; BMI 31.1
--- NOTE | 2023-09-28 08:50 | A.OFFVIS_ITS ---
Intake Vital Signs 09/28/23 08:50 Height 5 ft 7 in Weight 198 lb 6.656 oz BMI 31.1 BP 136/80 Blood Pressure Location Lt brachial Position Sitting Pulse 51 Intake Visit Reasons: follow-up with ekg after cardioversion Intake Note: Follow-up with ekg after cardioversion/ slight chest pain last night. Core Analysis Operator Required: No Allergies bee sting Allergy (Intermediate, Uncoded 08/02/23 14:52) swelling doritos chips Adverse Reaction (Intermediate, Uncoded 08/02/23 14:52) lower extremity edema, rectal bleeding Medication List - Last Reconciled 09/28/23 by Deepak Shirley MD amlodipine 10 mg PO DAILY carvedilol (Coreg) 6.25 mg PO Q12H 90 days dronedarone (Multaq) 400 mg PO BID rivaroxaban (Xarelto) 20 mg PO DAILY tamsulosin 0.4 mg PO BID valsartan-hydrochlorothiazide 160-12.5 mg 1 tab PO .bid HPI HPI Comments History of Present Illness Details Bradley comes for follow-up. Status post cardioversion. Today's EKG shows sinus rhythm. Since I last saw him he says he is feeling better. He has had more energy and feeling less tired when he is doing certain work. That definitely shows improvement in his cardiac function. His stress test in August was within normal limits. At some chest discomfort last night at rest after eating. He denies any heart failure symptoms. No shortness of breath, orthopnea, PND. No lightheadedness, syncope. No bleeding issues or neurologic events. Takes all his medications. He said over the last 6 months that he was not doing his activity level he is noticing some fatigue but he says he is building on it. No exertional chest pain. [facility] Medical History (Updated 09/28/23 @ 09:12 by Deepak Shirley MD) Paroxysmal atrial fibrillation Persistent atrial fibrillation HTN (hypertension) Surgical History History of anterior cruciate ligament surgery H/O colonoscopy Hx of repair of right rotator cuff Social History Patient Tobacco Use Status: Never used Tobacco Tobacco use type: Pipe Years Smoked: 20 years Review of Systems Const Denies chills, Denies fatigue, Denies fever(s), Denies frequent falls, Denies weakness, Denies weight gain and Denies weight loss ENT Denies dizziness Card Denies chest pain, Denies leg edema, Denies lightheadedness, Denies palpitations, Denies dyspnea, Denies dyspnea on exertion, Denies orthopnea and Denies other (loss of consciousness) Resp Denies cough, Denies dyspnea and Denies dyspnea on exertion GI Denies hematochezia and Denies change in stool character Musc Denies abnormal gait, Denies muscle weakness, Denies numbness, Denies radiating pain into limb and Denies tingling Neuro Denies Abnormal speech present, Denies abnormal gait, Denies dizziness, Denies frequent falls, Denies numbness, Denies tingling and Denies weakness Endo Denies fatigue and Denies palpitations Physical Exam Vital Signs: Last Vital Signs Pulse 51 09/28/23 08:50 BP 136/80 09/28/23 08:50 BMI result Body Mass Index 31.1 Const General: cooperative, comfortable, no acute distress, well developed, alert, awake, Physically active and well groomed Nutritional Appearance: average body habitus and well nourished Orientation/consciousness: patient oriented x3 Limitations: no limitations HEENT Head: Yes normocephalic and Yes atraumatic Neck Neck: Yes trachea midline, Yes supple and Yes no JVD Resp Effort & Inspection: normal respiratory effort Auscultation: clear to auscultation bilaterally Cardio Jugular venous distension: no JVD Rate: regular rate and bradycardic Rhythm: regular rhythm Heart sounds: S1 normal heart sound present, S2 normal heart sound present, no click, no gallops, no murmurs and no rubs Peripheral pulses: Peripheral pulses 2+ throughout GI Auscultation: normal bowel sounds Skin General skin exam: no rashes or lesions noted Neuro General: patient oriented x3 and no focal motor deficits Speech: No Abnormal speech present Extrem General: Yes no clubbing, cyanosis or edema Psych Appearance: grossly normal Office Procedures EKG Details: EKG shows sinus bradycardia 51 beats per minute with PACs with bifascicular block with right bundle and left anterior fascicular block [id number], Complete Assessment & Plan Assessment & Plan (1) Paroxysmal atrial fibrillation: Code(s): I48.0 - Paroxysmal atrial fibrillation Plan: Paroxysmal atrial fibrillation with low-amplitude P waves on today's EKG suggestive atrial myopathy. Patient is feeling a lot better in normal rhythm suggesting that his symptoms were related to loss of AV synchrony. Continue aggressively rhythm control approach. We discussed about pursuing daily EKG monitoring on his own by smart phone based EKG device. He is willing to do the same. Continue risk factor modification with aggressive blood pressure control, see below. Continue Multaq. CHADSVASc score of 2. Continue full oral anticoagulation with Xarelto. Advised to maintain activity level as tolerated. Avoidance of stimulants was discussed. (2) HTN (hypertension): Code(s): I10 - Essential (primary) hypertension Plan: Hypertension which is well optimized on current medications. Importance of good blood pressure control was discussed to manage cardiovascular risk including risk of preventing recurrent atrial fibrillation. Low-salt diet was discussed. Given his age and risk factors advise coronary calcium score to assess for presence of coronary atherosclerosis to guide treatment. Complete smoking cessation was advised. Will follow up in the clinic in 6 months. Advise EKG through your office in 3 months Coding Level of Care Code Est Pt Level 4 (75675) Diagnoses Paroxysmal atrial fibrillation I48.0 HTN (hypertension) I10 CPT Codes EKG - CPT: 42799-[id number], Complete ([id number])
--- NOTE | 2023-09-28 08:50 | MHC.OFFVIS ---
Intake Vital Signs 09/28/23 08:50 Height 5 ft 7 in Weight 198 lb 6.656 oz BMI 31.1 BP 136/80 Blood Pressure Location Lt brachial Position Sitting Pulse 51 Intake Visit Reasons: follow-up with ekg after cardioversion Allergies bee sting Allergy (Intermediate, Uncoded 08/02/23 14:52) swelling doritos chips Adverse Reaction (Intermediate, Uncoded 08/02/23 14:52) lower extremity edema, rectal bleeding Medication List - Last Reconciled 09/28/23 by Deepak Shirley MD amlodipine 10 mg PO DAILY carvedilol (Coreg) 6.25 mg PO Q12H 90 days dronedarone (Multaq) 400 mg PO BID rivaroxaban (Xarelto) 20 mg PO DAILY tamsulosin 0.4 mg PO BID valsartan-hydrochlorothiazide 160-12.5 mg 1 tab PO .bid PFSH Medical History (Updated 09/28/23 @ 09:12 by Deepak Shirley MD) Paroxysmal atrial fibrillation Persistent atrial fibrillation HTN (hypertension) Surgical History History of anterior cruciate ligament surgery H/O colonoscopy Hx of repair of right rotator cuff Patient Tobacco Use Status: Never used Tobacco Tobacco use type: Pipe Years Smoked: 20 years Review of Systems Const Denies chills, Denies fatigue, Denies fever(s), Denies frequent falls, Denies weakness, Denies weight gain and Denies weight loss ENT Denies dizziness Card Denies chest pain, Denies leg edema, Denies lightheadedness, Denies palpitations, Denies dyspnea, Denies dyspnea on exertion, Denies orthopnea and Denies other (loss of consciousness) Resp Denies cough, Denies dyspnea and Denies dyspnea on exertion GI Denies hematochezia and Denies change in stool character Musc Denies abnormal gait, Denies muscle weakness, Denies numbness, Denies radiating pain into limb and Denies tingling Neuro Denies abnormal gait, Denies dizziness, Denies frequent falls, Denies numbness, Denies tingling and Denies weakness Endo Denies fatigue and Denies palpitations Physical Exam Vital Signs: Last Vital Signs Pulse 51 09/28/23 08:50 BP 136/80 09/28/23 08:50 BMI result Body Mass Index 31.1 Office Procedures EKG Details: EKG shows sinus bradycardia 51 beats per minute with PACs with bifascicular block with right bundle and left anterior fascicular block. Low-amplitude P waves suggestive of atrial myopathy [id number], Complete Assessment & Plan Assessment & Plan (1) Paroxysmal atrial fibrillation: Code(s): I48.0 - Paroxysmal atrial fibrillation Plan: Paroxysmal atrial fibrillation which appears to be structural in nature related to longstanding hypertension. Patient is doing well with rhythm control approach and feels a lot improved symptoms and exercise capacity. Continue to pursue aggressive rhythm control approach. We discussed about management of atrial fibrillation and rhythm control especially in structural AFib and requirement of antiarrhythmic drug support. He understands and agrees. He will follow-up EKG which is required in 3 months through your office. Will follow up in the clinic in 6 months time. Hopefully over time with LV positive remodeling and improvement in atrial myopathy. This was discussed with him. Continue aggressive control blood pressure. Continue full oral anticoagulation, currently on Xarelto 20 mg daily. Avoidance of stimulants was discussed. (2) HTN (hypertension): Code(s): I10 - Essential (primary) hypertension Plan: Longstanding hypertension requiring multiple agents. Currently blood pressure is well optimized. Importance of blood pressure control was discussed. Advised to monitor blood pressure at home maintain a log. Goal blood pressure less than 130/84. Low-salt diet was discussed. Continue participate in physical activity as tolerated. We discussed about further screening for coronary atherosclerosis and suggest coronary calcium score. He is agreeable to the same. Will follow up in the clinic in 6 months time, sooner p.r.n.. Thank you for allowing me to partake in his care Orders: Orders CT Coronary Calcium Score 2 Weeks I10 - Essential (primary) hypertension Medications: New amlodipine 10 mg PO DAILY 90 tabs 1RF I10 - Essential (primary) hypertension rivaroxaban (Xarelto) 20 mg PO DAILY 90 tabs 1RF I10 - Essential (primary) hypertension Refilled carvedilol (Coreg) must administer with a meal/food 6.25 mg PO Q12H 90 days 180 tabs 1RF I10 - Essential (primary) hypertension valsartan-hydrochlorothiazide 160-12.5 mg 1 tab PO .bid 180 tabs 1RF I10 - Essential (primary) hypertension dronedarone (Multaq) must administer with a meal/food 400 mg PO BID 180 tabs 1RF I48.19 - Other persistent atrial fibrillation Coding Level of Care Code Est Pt Level 4 (23093) Diagnoses Paroxysmal atrial fibrillation I48.0 HTN (hypertension) I10 CPT Codes EKG - CPT: 75862-[id number], Complete ([id number])
== END 2023-09-28 09:18 | disposition home or self-care (01) ==
PROVIDERS: PCP Internal Medicine; Visit Provider Internal Medicine Cardiovascular Disease
DX: I48.0 Paroxysmal atrial fibrillation (principal); I10 Essential (primary) hypertension
CPT/HCPCS: 93010; 99213

== ENCOUNTER → 2023-09-28 08:49 | Outpatient (BNVA) | payer BC, SELFPAY | PROVIDERS: PCP Internal Medicine; Visit Provider Internal Medicine Cardiovascular Disease | DX: I48.0 Paroxysmal atrial fibrillation (principal); I10 Essential (primary) hypertension | CPT/HCPCS: 93005 ==

== ENCOUNTER 2023-11-18 07:43 | Outpatient (REF) | payer BC, SELFPAY ==
--- NOTE | ~2023-11-18 | XR_ITS ---
EXAMINATION: XR KNEE, LEFT XR KNEE, STANDING, BILATERAL CLINICAL INFORMATION: Knee pain. COMPARISON: None available. TECHNIQUE: Single standing view of both knees along with lateral and sunrise views on the left. FINDINGS: The right, there is narrowing of both the medial and lateral compartments. There is some sclerotic change in the proximal fibular head not well seen that may represent an old or healing fracture. On the left, there is marked joint space narrowing, medial greater than lateral. Mild narrowing of the patellofemoral joint with posterior patellar osteophytes. A tiny joint effusion is present. There is swelling of the soft tissues/skin anterior to the patella. XR/XR knee LT 2V IMPRESSION: Tricompartmental degenerative changes, left greater than right.
--- NOTE | ~2023-11-18 | XR_ITS ---
EXAMINATION: XR KNEE, LEFT XR KNEE, STANDING, BILATERAL CLINICAL INFORMATION: Knee pain. COMPARISON: None available. TECHNIQUE: Single standing view of both knees along with lateral and sunrise views on the left. FINDINGS: The right, there is narrowing of both the medial and lateral compartments. There is some sclerotic change in the proximal fibular head not well seen that may represent an old or healing fracture. On the left, there is marked joint space narrowing, medial greater than lateral. Mild narrowing of the patellofemoral joint with posterior patellar osteophytes. A tiny joint effusion is present. There is swelling of the soft tissues/skin anterior to the patella. XR/XR knee standing BI IMPRESSION: Tricompartmental degenerative changes, left greater than right.
== END 2023-11-18 07:44 | disposition home or self-care (01) ==
LOC: HO.HOSX 07:43
PROVIDERS: Visit Provider Orthopaedic Surgery
DX: M17.12 Unilateral primary osteoarthritis, left knee (principal)
CPT/HCPCS: 73560; 73565

== ENCOUNTER 2023-11-18 14:02 | Outpatient (AMB) | payer BC, SELFPAY ==
[2023-11-18 14:23] VITALS: BMI 31.0
--- NOTE | 2023-11-18 14:23 | A.OFFVIS_ITS ---
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 Hx of left ACL repair KI, after this he was concerned of bone chip but no treatment was done. 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 he complains of ~3 months left knee pain, and says he has a painful lump in the lateral aspect of his knee. he has a hx of left knee ACL repair done by Dr. Del Rosario, and he says there was a concern about a loose bone shard following surgery. He denies any treatment for this possible bone shard. [facility] Medical History (Updated 11/21/23 @ 10:12 by Rex Whiting MD) Paroxysmal atrial fibrillation Persistent atrial fibrillation HTN (hypertension) Surgical History History of anterior cruciate ligament surgery H/O colonoscopy Hx of repair of right rotator cuff Social History Patient Tobacco Use Status: Never used Tobacco Tobacco use type: Pipe Years Smoked: 20 years Review of Systems Const All systems reviewed & are unremarkable except as noted in HPI and below Physical Exam Vital Signs: BMI result Body Mass Index 31.0 Const General: no acute distress, alert and awake Orientation/consciousness: patient oriented x3 HEENT Head: Yes normocephalic and Yes atraumatic Eyes EOM: EOMs intact bilaterally Resp Effort & Inspection: normal respiratory effort and able to speak in complete sentences Cardio Jugular venous distension: no JVD Skin General skin exam: turgor normal Rashes: no rashes Neuro General: patient oriented x3 Extrem Other: Varus left knee with varus gait and + effusion which is prominent over the lateral anterolateral soft spot. No palpable bone. No ttp. No gait antalgia Psych Appearance: grossly normal Affect: normal affect Attitude: cooperative Results Reviewed Results Reviewed: I personally reviewed relevant radiographs. Severe left knee varus pattern OA Assessment & Plan Assessment & Plan (1) Primary localized osteoarthritis of left knee: Code(s): M17.12 - Unilateral primary osteoarthritis, left knee Plan: Severe left knee OA with no symptoms other than intermittant effusion. It sounds like he had a large effusion and there was a loose body or a meniscal fragment palpable but that is not present now. He can return to see me if such symptoms arise again but at this time there in no intervention warranted. Plan Scribed for Rex Whiting MD by Connor You, medical dosimetrist, on 11/18/23 at 2:30 PM, EST. Orders: Orders XR knee standing BI 11/18/23 M25.569 - Pain in unspecified knee XR knee LT 2V 11/18/23 M25.569 - Pain in unspecified knee Coding Level of Care Code New Pt Level 3 (36892) Diagnoses Primary localized osteoarthritis of left knee M17.12
== END 2023-11-18 14:53 | disposition home or self-care (01) ==
PROVIDERS: PCP Internal Medicine; Visit Provider Orthopaedic Surgery
DX: M17.12 Unilateral primary osteoarthritis, left knee (principal)
CPT/HCPCS: 99203

== ENCOUNTER 2023-12-03 11:25 | Outpatient (REF) | payer BC, SELFPAY ==
[2023-12-03 11:29] LABS: MANUAL DIFF FLAG NO
[2023-12-03 11:45] LABS: Appearance Urine Clear; Basophils Absolute Auto 0.1 X10*3/uL (0.0-0.2); Basophils Percent Auto 1.2 % (0-2); Color Urine Yellow; Eosinophils Absolute Auto 0.7 X10*3/uL (0.0-0.4); Eosinophils Percent Auto 6.7 % (0-4); Glucose Urine UA Negative (Negative); Hematocrit 43.6 % (42.0-52.0); Hemoglobin 14.3 g/dl (14.0-18.0); Imm Gran Abs Auto 0.03 X10*3/uL (0.00-0.03); Imm Gran Pct Auto 0.3 % (0.0-0.4); Leukocyte Esterase Urine Negative (Negative); Lymphocytes Percent Auto 19.6 % (20-40); Mean Corpuscular HGB Conc 32.8 g/dl (31.0-36.0); Mean Corpuscular Volume 94.4 fL (80.0-98.0); Mean Platelet Volume 12.5 fL (9.4-12.4); Monocytes Absolute Auto 0.9 X10*3/uL (0.1-1.2); Monocytes Percent Auto 8.7 % (2-11); Neutrophils Absolute Auto 6.5 x10*3/uL (2.0-8.3); Neutrophils Percent Auto 63.5 % (45-73); Nitrite Urine Negative (Negative); Platelet Count 260 X10*3/uL (160-400); Red Blood Count 4.62 X10*6/uL (4.60-5.80); Red Cell Distribution Width 12.9 % (11.0-16.0); Specific Gravity - Urine 1.015 (1.005-1.025); Urine Blood Negative (Negative); Urine Ketones Negative (Negative); Urine Protein Negative (Neg-Trace); White Blood Count 10.2 X10*3/uL (4.8-10.8)
[2023-12-03 11:49] LABS: Bacteria Urine None Seen (None Seen); Hyaline Casts Urine 0-2 /LPF (0-2); RBC Urine 0-2 /HPF (0-2); Squamous Epithelial Cell Urine 0-2 /HPF (0-2); WBC Urine 0-5 /HPF (0-5)
[2023-12-03 11:55] LABS: Alanine Aminotransferase 26 U/L (0-40); Albumin Level 3.8 g/dL (3.5-5.0); Alkaline Phosphatase 66 U/L (39-117); Anion Gap 12 (12-20); Aspartate Amino Transferase 24 U/L (5-37); Bilirubin Total 0.6 mg/dL (0.0-1.0); Blood Urea Nitrogen 18 mg/dL (9-16); Calcium 8.9 mg/dL (8.4-10.2); Carbon Dioxide 26 mmol/L (22-29); Chloride 106 mmol/L (96-108); Cholesterol 185 mg/dL (<200); Estimated Average Glucose 108 mg/dL; Estimated Glomerular Filt Rate > 60; Glucose Fasting 100 mg/dL (60-99); HDL Cholesterol 56 mg/dL (>40); Hemoglobin A1c % 5.4 % (<6.0); LDL Cholesterol Calculated 112 mg/dL (<100); Potassium 4.5 mmol/L (3.3-5.1); Sodium 139 mmol/L (135-145); Triglycerides 88 mg/dL (<150)
[2023-12-03 12:15] LABS: PSA,Total (Free>4and<10) 5.19 ng/mL (0.00-4.00)
[2023-12-03 12:49] LABS: Creatinine Urine 115.19 mg/dL; Microalbumin Urine < 5.0 mg/L
[2023-12-06 12:28] LABS: Free Prostate Spec Ag 1.3 ng/mL; Percent Free Prostate Spec Ag 29 % (calc) (>25); Prostate Specific Ag Total 4.5 ng/mL (< OR = 4.0)
== END 2023-12-03 11:26 | disposition home or self-care (01) ==
LOC: HO.LNP 11:25
PROVIDERS: Visit Provider Internal Medicine
DX: Z00.00 Encounter for general adult medical examination without abnormal findings (principal); Z12.5 Encounter for screening for malignant neoplasm of prostate; R73.03 Prediabetes; I10 Essential (primary) hypertension
CPT/HCPCS: 80053; 80061; 81001; 82043; 82570; 83036; 84153; 84154; 85025

== ENCOUNTER 2024-01-31 14:51 | Outpatient (AMB) | payer BC, SELFPAY ==
[2024-01-31 15:03] VITALS: BP 116/67; PULSE 58; BMI 32.1
--- NOTE | 2024-01-31 15:03 | MHC.OFFVIS ---
Intake Vital Signs 01/31/24 15:03 Height 5 ft 7 in Weight 205 lb 0.478 oz BMI 32.1 BP 116/67 Blood Pressure Location Rt brachial Position Sitting Pulse 58 Intake Visit Reasons: Colonoscopy screening / rectal bleeding Intake Note: Patient in office today for colonoscopy screening and rectal bleeding. CC: Patient with rectal bleeding for 15 years states there are some spicy foods that cause it more. Patient c/o acid reflux some times in the middle of the night usually, once a month. Patient takes Rolaids for acid reflux. Denies other GI symptoms. Communications Representative Required: No Allergies No Known Drug Allergies Allergy (Severe, Verified 01/31/24 15:10) none bee pollen [bee stings] Allergy (Intermediate, Verified 01/31/24 15:10) Swelling doritos chips Adverse Reaction (Intermediate, Uncoded 08/02/23 14:52) lower extremity edema, rectal bleeding Medication List - Last Reconciled 01/31/24 by Laine Diaz PA-C amlodipine 10 mg PO DAILY carvedilol (Coreg) 6.25 mg PO Q12H 90 days dronedarone (Multaq) 400 mg PO BID [fish oil PO] multivitamin 1 tab PO DAILY rivaroxaban (Xarelto) 20 mg PO DAILY tamsulosin 0.4 mg PO BID valsartan-hydrochlorothiazide 160-12.5 mg 1 tab PO .bid HPI HPI Comments History of Present Illness Details A 68 y/o male with AFib, anticoagulation, mild rectal bleeding- BRBPR- with spicy foods- saw pcp- [id number] is due for screening colonoscopy He has a normal bowel pattern. Appetite is good He works full-time He has no other GI or general complaints No nausea, vomiting, hematemesis, fever or chills He is taking Xarelto for history of AFib he did have cardioversion-he follows with Dr. Shirley- upcoming appointment next month [facility] Medical History Paroxysmal atrial fibrillation Persistent atrial fibrillation HTN (hypertension) Surgical History History of anterior cruciate ligament surgery H/O colonoscopy Hx of repair of right rotator cuff Social History (Updated 01/31/24 @ 15:13 by Laine Diaz PA-C) Patient Tobacco Use Status: Never used Tobacco Tobacco use type: Pipe Years Smoked: 20 years Current occupational status: employed Review of Systems Const All systems reviewed & are unremarkable except as noted in HPI and below Card Denies chest pain and Denies dyspnea Resp Denies dyspnea GI Denies abdominal pain and Reports other (rectal bleed) Physical Exam Vital Signs: Last Vital Signs Pulse 58 01/31/24 15:03 BP 116/67 01/31/24 15:03 BMI result Body Mass Index 32.1 Const General: cooperative, healthy appearing, comfortable, no acute distress and alert Orientation/consciousness: patient oriented x3 Limitations: no limitations Eyes Sclerae: sclerae normal Cardio Rate: regular rate Rhythm: regular rhythm Heart sounds: S1 normal heart sound present and S2 normal heart sound present GI Palpation (GI): Soft to palpation and nontender Auscultation: normal bowel sounds Skin General skin exam: no rashes or lesions noted Neuro General: patient oriented x3 Extrem General: Yes full ROM Psych Appearance: grossly normal and well kempt Mental Status: mental status grossly normal Speech and movement: Normal speech and movement present and Clear speech present Affect: normal affect Attitude: cooperative Thought process: Normal thought process present Thought content: Normal thought content present Assessment & Plan Assessment & Plan (1) Encounter for screening colonoscopy: Code(s): Z12.11 - Encounter for screening for malignant neoplasm of colon (2) Paroxysmal atrial fibrillation: Comment: seeing Dr. Shirley- prior to colonoscopy Code(s): I48.0 - Paroxysmal atrial fibrillation (3) Tubular adenoma of colon: Comment: 2016 Code(s): D12.6 - Benign neoplasm of colon, unspecified Plan: Due for polyp surveillance colonoscopy Plan Colon MG XARELTO- stop 2 days if appropriate- Patient Instructions: Pleasant 68-year-old Gent AFib, Xarelto-personal history of adenomatous colon polyps due for polyp surveillance We discussed procedure, rare risks need for escorted due to anesthesia Discuss medications Xarelto typically discontinued 2 days prior to procedure in anticipation of polypectomy He will be following back with Cardiology prior to procedure No major barriers to understanding were identified MiraLax Gatorade prep reviewed literature Opportunity for questions answered to his satisfaction Appreciate the opportunity assist in the care this pleasant Coding Level of Care Code New Pt Level 3 (01547) Diagnoses Encounter for screening colonoscopy Z12.11 Paroxysmal atrial fibrillation I48.0 Tubular adenoma of colon D12.6 Time Spent (min) 25
== END 2024-01-31 15:49 | disposition home or self-care (01) ==
PROVIDERS: PCP Internal Medicine; Visit Provider Physician Assistant
DX: Z01.818 Encounter for other preprocedural examination (principal); Z12.11 Encounter for screening for malignant neoplasm of colon; Z86.010 Personal history of colon polyps; K62.5 Hemorrhage of anus and rectum
CPT/HCPCS: S0285

== ENCOUNTER → 2024-01-31 14:51 | Outpatient (BNVA) | payer BC, SELFPAY | PROVIDERS: PCP Internal Medicine; Visit Provider Physician Assistant ==

== ENCOUNTER 2024-03-30 15:01 | Outpatient (AMB) | payer BC, SELFPAY ==
--- NOTE | 2024-03-30 15:14 | A.OFFVIS_ITS ---
Vital Signs 03/30/24 15:15 Height 5 ft 7 in Weight 196 lb 3.382 oz BMI 30.7 BP 110/74 Blood Pressure Location Lt brachial Position Sitting Pulse 58 Intake Visit Reasons: 6 mth f/up w/ ekg s/p calcium score Intake Note: 6 month follow-up with ekg c/o fatigue and weakness Monitoring Coordinator Required: No Allergies No Known Drug Allergies Allergy (Severe, Verified 01/31/24 15:10) none bee pollen [bee stings] Allergy (Intermediate, Verified 01/31/24 15:10) Swelling doritos chips Adverse Reaction (Intermediate, Uncoded 08/02/23 14:52) lower extremity edema, rectal bleeding Medication List - Last Reconciled 03/30/24 by Deepak Shirley MD amlodipine 10 mg PO DAILY carvedilol (Coreg) 6.25 mg PO Q12H 90 days dronedarone (Multaq) 400 mg PO BID 90 days [fish oil PO] multivitamin 1 tab PO DAILY rivaroxaban (Xarelto) 20 mg PO DAILY tamsulosin 0.4 mg PO BID valsartan-hydrochlorothiazide 160-12.5 mg 1 tab PO .bid HPI Comments Details: Bradely comes for follow-up. He has been doing very well from cardiac perspective. He has not had any recurrent episodes of palpitations or prolonged irregular heartbeat or episodes suggestive atrial fibrillation. Tolerating his medications. His coronary calcium score was significantly elevated and subsequently recently underwent coronary CTA which showed diffuse atherosclerotic disease which was mild to moderate and subsequent CTA FFR analysis shows nonobstructive disease. He has no exertional chest pain. He said when he tries to take a deep breath he will get some discomfort in his precordial area but there is never exertional related. He takes all his medications. His last LDL was 111 mg/dL. He says blood pressure is currently well optimized. He has no bleeding issues or neurologic events. No heart failure symptoms. [facility] Medical History CAD (coronary artery disease) Paroxysmal atrial fibrillation Persistent atrial fibrillation HTN (hypertension) Surgical History History of anterior cruciate ligament surgery H/O colonoscopy Hx of repair of right rotator cuff Social History Patient Tobacco Use Status: Never used Tobacco Tobacco use type: Pipe Years Smoked: 20 years Current occupational status: employed Review of Systems Const Denies chills, Denies fatigue, Denies fever(s), Denies frequent falls, Denies weakness, Denies weight gain and Denies weight loss ENT Denies dizziness Card Denies chest pain, Denies leg edema, Denies lightheadedness, Denies palpitations, Denies dyspnea, Denies dyspnea on exertion, Denies orthopnea and Denies other (loss of consciousness) Resp Denies cough, Denies dyspnea and Denies dyspnea on exertion GI Denies hematochezia and Denies change in stool character Musc Denies abnormal gait, Denies muscle weakness, Denies numbness, Denies radiating pain into limb and Denies tingling Neuro Denies Abnormal speech present, Denies abnormal gait, Denies dizziness, Denies frequent falls, Denies numbness, Denies tingling and Denies weakness Endo Denies fatigue and Denies palpitations Physical Exam Vital Signs: Last Vital Signs Pulse 58 03/30/24 15:15 BP 110/74 03/30/24 15:15 BMI result Body Mass Index 30.7 Const General: cooperative, comfortable, no acute distress, well developed, alert, awake, Physically active and well groomed Nutritional Appearance: average body habitus and well nourished Orientation/consciousness: patient oriented x3 Limitations: no limitations HEENT Head: Yes normocephalic and Yes atraumatic Neck Neck: Yes trachea midline, Yes supple and Yes no JVD Resp Effort & Inspection: normal respiratory effort Auscultation: clear to auscultation bilaterally Cardio Jugular venous distension: no JVD Rate: regular rate and bradycardic Rhythm: regular rhythm Heart sounds: S1 normal heart sound present, S2 normal heart sound present, no click, no gallops, no murmurs and no rubs Peripheral pulses: Peripheral pulses 2+ throughout GI Auscultation: normal bowel sounds Skin General skin exam: no rashes or lesions noted Neuro General: patient oriented x3 and no focal motor deficits Speech: No Abnormal speech present Extrem General: Yes no clubbing, cyanosis or edema Psych Appearance: grossly normal Office Procedures EKG Details: EKG shows normal sinus rhythm with right bundle and left anterior fascicular block consistent with bifascicular block with normal JT index [id number], Complete Assessment & Plan Assessment & Plan (1) CAD (coronary artery disease): Code(s): I25.10 - Atherosclerotic heart disease of [place] coronary artery without angina pectoris Category: Medical Plan: Recently detected CAD with significant elevated coronary calcium score with coronary CTA showing diffuse atherosclerotic process all of which is nonobstructive by CTA FFR analysis. Currently not having any concerning symptoms. Management and pathophysiology of coronary atherosclerosis was discussed in details. His blood pressure is currently well optimized. He is currently on Xarelto therapy and continue. Avoid aspirin therapy. I would suggest him to be on a statin therapy to reduce progressive coronary artery disease as well as reduce risk of acute coronary syndrome. Suggest atorvastatin 40 mg daily with follow-up lipid panel in 3 months to target goal LDL closer to 60 mg/dL. He is agreeable. (2) Paroxysmal atrial fibrillation: Comment: seeing Dr. Shirley- prior to colonoscopy Code(s): I48.0 - Paroxysmal atrial fibrillation Category: Medical Plan: Highly symptomatic paroxysmal atrial fibrillation doing very well with rhythm control approach. Continue current rhythm control approach. Currently on Multaq 400 mg b.i.d.. Importance of pursuing rhythm control was discussed. He understands agrees. Avoidance of stimulants was discussed. Continue aggressive blood pressure control which is currently well optimized. Continue current therapy. Will follow up in the clinic every 3 months for EKG in 1 year with me with EKG. Advised to call me with any new symptoms. Orders: Orders Lipid Panel 3 Months I25.10 - Atherosclerotic heart disease of [place] coronary artery without angina pectoris CA echo transthoracic complete 1 Year I48.0 - Paroxysmal atrial fibrillation Medications: New atorvastatin 40 mg PO DAILY 30 tabs 5RF I25.10 - Atherosclerotic heart disease of [place] coronary artery without angina pectoris Coding Level of Care Code Est Pt Level 4 (86460) Diagnoses CAD (coronary artery disease) I25.10 Paroxysmal atrial fibrillation I48.0 CPT Codes EKG - CPT: 92199-[id number], Complete ([id number])
[2024-03-30 15:15] VITALS: BP 110/74; PULSE 58; BMI 30.7
== END 2024-03-30 15:49 | disposition home or self-care (01) ==
PROVIDERS: PCP Internal Medicine; Visit Provider Internal Medicine Cardiovascular Disease
DX: I25.10 Atherosclerotic heart disease of native coronary artery without angina pectoris (principal); I48.0 Paroxysmal atrial fibrillation
CPT/HCPCS: 93010; 99214

== ENCOUNTER → 2024-03-30 15:01 | Outpatient (BNVA) | payer BC, SELFPAY | PROVIDERS: PCP Internal Medicine; Visit Provider Internal Medicine Cardiovascular Disease | DX: I25.10 Atherosclerotic heart disease of native coronary artery without angina pectoris (principal); I48.0 Paroxysmal atrial fibrillation; Z79.01 Long term (current) use of anticoagulants; Z79.899 Other long term (current) drug therapy | CPT/HCPCS: 93005 ==

== ENCOUNTER 2024-06-02 13:01 | Outpatient (REF) | payer BC, SELFPAY ==
[2024-06-02 13:56] LABS: TSH reflex Free T4 1.32 uIU/mL (0.32-4.0)
== END 2024-06-02 13:02 | disposition home or self-care (01) ==
LOC: HO.LNP 13:01
PROVIDERS: Visit Provider Internal Medicine
DX: I48.91 Unspecified atrial fibrillation (principal)
CPT/HCPCS: 84443

== ENCOUNTER 2024-07-17 09:02 | Day surgery (SDC) | payer BC, SELFPAY ==
--- NOTE | 2024-07-14 12:01 | P.CONAN_ITS ---
Documented by User: Criss Araujo NP 07/14/24 12:06 HPI - Anesthesia Eval Consult details Narrative: 68yo M for Colonoscopy Xarelto for Afib Follows [facility] [place] Cardiology. Non obstructive CAD by CTA per 03/2024 office visit note. [facility] Active Problems Active Problems: All Active Problems CAD (coronary artery disease) (Acute) Tubular adenoma of colon (Acute) Encounter for screening colonoscopy (Acute) Primary localized osteoarthritis of left knee (Acute) Elevated LDL cholesterol level (Acute) Hypercholesteremia (Acute) Elevated coronary artery calcium score (Acute) Paroxysmal atrial fibrillation (Acute) SOB (shortness of breath) on exertion (Acute) Bilateral lower extremity edema (Acute) Personal history of tobacco use (Acute) Wheezing (Acute) HTN (hypertension) (Acute) Past Medical History Medical History CAD (coronary artery disease) Paroxysmal atrial fibrillation Persistent atrial fibrillation HTN (hypertension) Family History Family history of problems with anesthesia: No Surgical History Surgical History History of anterior cruciate ligament surgery H/O colonoscopy Hx of repair of right rotator cuff History of Problems with Anesthesia: No Social History Social History Are you a primary animal care supervisor to a significant other at home: No Do you presently have visiting nurse or other home services: No Patient Tobacco Use Status: Never used Tobacco Tobacco use type: Pipe Years Smoked: 20 years Use of substances other than those prescribed or required for medical reasons: No Have you been hit, kicked, punched, or otherwise hurt by someone within the past year? If so, by whom?: No Are you DNR?: No Advance Directives: No Advance Directives Information Provided: Yes Recently lost weight without trying: No Current occupational status: employed Meds Allergies Allergy/AdvReac Type Severity Reaction Status Date / Time No Known Drug Allergies Allergy Severe none Verified 01/31/24 15:10 bee pollen [bee stings] Allergy Intermediate Swelling Verified 01/31/24 15:10 doritos chips AdvReac Intermediate lower Uncoded 08/02/23 14:52 extremity edema, rectal bleeding Home Medications ?Medication ?Instructions ?Recorded ?Confirmed ?Last Taken ?Type tamsulosin 0.4 mg capsule 0.4 mg PO BID 05/21/23 03/30/24 08/03/23 History fish oil PO 01/31/24 03/30/24 Unknown History multivitamin 1 tab PO DAILY 01/31/24 03/30/24 Unknown History Exam Pertinent Lab Results Pertinent Lab Results: Laboratory Tests 12/03/23 07:45 WBC 10.2 Hgb 14.3 Hct 43.6 Plt Count 260 Sodium 139 Potassium 4.5 Chloride 106 Carbon Dioxide 26 BUN 18 H Creatinine 1.01 Narrative Narrative: EKG 05/2024 SB with SA 1st deg AV block LAD c/w LAFB RBBB NM cardiolite stress test 2022 IMPRESSION: 1. Myocardial perfusion imaging study shows no clear evidence of any ischemia or infarction. Fixed inferior defect suspected to be from diaphragmatic attenuation artifact. 2. Gated LVEF is seen during stress and 65% during rest. LV cavity appears dilated. 3. Transient ischemic dilatation not present. EKG component of the test reported separately. Assessment and Plan Assessment Anesthesia Assessment: Chart Reviewed Final Anesthetic Review Family History of Problems with Anesthesia: No History of Problems with Anesthesia: No Documented by User: Lelia Brito MD 07/17/24 10:33 [facility] Past Medical History Medical History CAD (coronary artery disease) Paroxysmal atrial fibrillation Persistent atrial fibrillation HTN (hypertension) Surgical History Surgical History History of anterior cruciate ligament surgery H/O colonoscopy Hx of repair of right rotator cuff Social History Social History Are you a primary animal care supervisor to a significant other at home: No Do you presently have visiting nurse or other home services: No Patient Tobacco Use Status: Never used Tobacco Tobacco use type: Pipe Years Smoked: 20 years Use of substances other than those prescribed or required for medical reasons: No Have you been hit, kicked, punched, or otherwise hurt by someone within the past year? If so, by whom?: No Are you DNR?: No Advance Directives: No Advance Directives Information Provided: Yes Recently lost weight without trying: No Current occupational status: employed Meds Allergies Allergy/AdvReac Type Severity Reaction Status Date / Time No Known Drug Allergies Allergy Severe none Verified 01/31/24 15:10 bee pollen [bee stings] Allergy Intermediate Swelling Verified 01/31/24 15:10 doritos chips AdvReac Intermediate lower Uncoded 08/02/23 14:52 extremity edema, rectal bleeding Home Medications ?Medication ?Instructions ?Recorded ?Confirmed ?Last Taken ?Type tamsulosin 0.4 mg capsule 0.4 mg PO BID 05/21/23 03/30/24 08/03/23 History fish oil PO 01/31/24 03/30/24 Unknown History multivitamin 1 tab PO DAILY 01/31/24 03/30/24 Unknown History Exam Airway Mallampati Class: II TM Dist: >3cm Neck ROM: Full Heart: rrr Lungs: cta Assessment and Plan Assessment Anesthesia Assessment: Anesthesia Plan Discussed Final Anesthetic Review NPO: Yes ASA Class: III Final Preanesthetic Review: No Changes in Pt Med Stat, Meds/Allgs Chart Reviewed and Consent Obtained/Reviewed Patient Risk: Intermediate Procedure Risk: Low Anesthetic Plan Anesthetic Plan: MAC: Disposition: Standard PACU
[2024-07-17 10:06] VITALS: BP 117/76; PULSE 55; RESP 16; TEMP 36.8; O2SAT 96; BMI 32.3
[2024-07-17] MEDS: Lactated Ringers 1,000 ML 100 ML IVCONT (10:17)
--- NOTE | 2024-07-17 10:34 | MHC.SHP ---
Pre-Procedural Eval Section A - 24 Hr Update-Section A only Date of Service: 07/17/24 The patient is an INPATIENT: No The patient has been examined within 24 hours of the surgical procedure. The History & Physical has been completed within 30 days and I have reviewed it.: No Section B - Complete if H&P > 30 days Chief Complaint: Surveillance of colon polyps Relevant Family History (Specify if Yes): No Relevant Social History: Tobacco Use Present Medications: see Short Stay Collaborative assessment Medical History: Significant History (Paroxysmal atrial fibrillation Persistent atrial fibrillation HTN (hypertension)) History of Previous Operations: Relevant previous surgery/procedure and date(s) (History of anterior cruciate ligament surgery H/O colonoscopy Hx of repair of right rotator cuff) Allergies: Allergies Allergy/AdvReac Type Severity Reaction Status Date / Time No Known Drug Allergies Allergy Severe none Verified 01/31/24 15:10 bee pollen [bee stings] Allergy Intermediate Swelling Verified 01/31/24 15:10 doritos chips AdvReac Intermediate lower Uncoded 08/02/23 14:52 extremity edema, rectal bleeding Review of Systems Sugical H&P ROS: Negative: Constitution, Cardiovascular and Respiratory Exam Surgical H&P Exam: Normal: Heart, Normal: Lungs, Normal: Extremities and Normal: Abdomen Plan Diagnosis/Plan: Unchanged I have reviewed the history and physical and performed a pertinent physical examination on my patient. No changes have occurred unless specified. Time Spent With Patient Time: Total time managing care of this patient today ____ minutes.
[2024-07-17 12:15] VITALS: BP 106/62; PULSE 47; RESP 12; TEMP 36.8; O2SAT 95
--- NOTE | 2024-07-17 12:17 | P.OPN-COLO_ITS ---
Colonoscopy Operative Note Operative Note Date of Service: 07/17/24 Narrative: COLONOSCOPY TILL CECUM WITH SNARE POLYPECTOMY Pre-op diagnosis: Surveillance for colon polyps, rectal bleeding. Post-op diagnosis:? Colon polyp, Diverticulosis, hemorrhoids Endoscopist:? Jayshree Serrano MD Anesthesia:?MAC Consent: Indications for the procedure and potential complications of bleeding, perforation, reaction to medications and missed diagnosis were discussed with the patient and informed consent was obtained. Instrument: Olympus PCF H 190 L variable stiffness pediatric colonoscope Monitoring: Vital signs and clinical assessment, intermittent blood pressure monitoring, continuous EKG monitoring, Pulse oximetry and Carbon Dioxide monitoring were done throughout the procedure. Please see anesthesia flowsheet. Colon withdrawl time was 18 minutes. Procedure: The patient was placed in the left lateral decubitis position and pre-procedure medications were administered. After a digital rectal examination of the ano-rectum, the video colonoscope was inserted into the rectum and advanced through the colon to the cecum. The colonoscope was slowly withdrawn in a retrograde panoramic fashion and the colon mucosa was carefully examined including a retroflexed view of the rectum. Findings and interventions are described below. Procedure Difficulty: without difficulty Findings: Terminal Ileum: Not evaluated Cecum: Normal Ascending Colon: Normal Transverse Colon: A 10-12 mm sessile polyp - removed with a hot snare Descending Colon: Moderate diverticulosis Sigmoid Colon: Severe diverticulosis Rectum: Normal Ano-rectum: Large internal hemorrhoids Colon preparation: Good after copious irrigation. [place] Bowel Preparation Scale Right colon; 2 Transverse colon: 2 Left colon; 2 (0 = Unprepared colon segment with mucosa not seen due to solid stool that cannot be cleared. 1 = Portion of mucosa of the colon segment seen, but other areas of the colon segment not well seen due to staining, residual stool and/or opaque liquid. 2 = Minor amount of residual staining, small fragments of stool and/or opaque liquid, but mucosa of colon segment seen well. 3 = Entire mucosa of colon segment seen well with no residual staining, small fragments of stool or opaque liquid) Impression and Post Procedure Diagnosis: Colonoscopy Findings: One medium sized polyp was removed Moderate to severe diverticulosis seen in the left colon Large hemorrhoids on retroflexed exam - likely source for rectal bleeding Plan: Repeat Colonoscopy in 3-5 years if polyps are adenomatous and 10 year if polyps are hyperplastic. Above findings were reviewed with the patient and relevant handouts were given and the discharge area. Option of using Hydrocortisone cream and referral to general suregry for band ligation of the hemorrhoids was reviewed with the patient. He noted, he only has rectal bleeding when he takes spicy foods.
[2024-07-17 12:30] VITALS: BP 135/62; PULSE 52; RESP 16; TEMP 37.1; O2SAT 98
[2024-07-17 12:45] VITALS: BP 127/79; PULSE 50; RESP 16; TEMP 36.7; O2SAT 97
== END 2024-07-17 13:06 | disposition home or self-care (01) ==
PROVIDERS: PCP Internal Medicine; Visit Provider Internal Medicine Gastroenterology
PROC: 0DJD8ZZ Inspection of Lower Intestinal Tract, Via Natural or Artificial Opening Endoscopic (ICD-10-PCS; CPT 45378; principal; 2024-07-17 11:00)
DX: Z12.11 Encounter for screening for malignant neoplasm of colon (principal); Z86.010 Personal history of colon polyps; K57.30 Diverticulosis of large intestine without perforation or abscess without bleeding; K63.5 Polyp of colon; K64.8 Other hemorrhoids; I10 Essential (primary) hypertension; I48.0 Paroxysmal atrial fibrillation; Z79.01 Long term (current) use of anticoagulants; Z79.899 Other long term (current) drug therapy; Z98.890 Other specified postprocedural states
CPT/HCPCS: 45385; 88305; J2704

== ENCOUNTER → 2024-07-17 09:02 | Outpatient (BNV) | payer BC, SELFPAY | PROVIDERS: PCP Internal Medicine; Visit Provider Internal Medicine Gastroenterology | DX: K62.5 Hemorrhage of anus and rectum (principal); D12.3 Benign neoplasm of transverse colon; K57.90 Diverticulosis of intestine, part unspecified, without perforation or abscess without bleeding; K64.8 Other hemorrhoids | CPT/HCPCS: 45385 ==

== ENCOUNTER 2024-12-22 07:00 | Outpatient (REF) | payer BC, SELFPAY ==
[2024-12-22 10:20] LABS: MANUAL DIFF FLAG NO
[2024-12-22 11:02] LABS: Appearance Urine Clear; Color Urine Yellow; Glucose Urine UA Negative (Negative); Leukocyte Esterase Urine Negative (Negative); Nitrite Urine Negative (Negative); PH 7.5 (5.0-9.0); Urine Blood Negative (Negative); Urine Ketones Negative (Negative); Urine Protein Negative (Neg-Trace)
--- OUTSIDE RECORDS SUMMARY | 2024-12-22 11:08 | XMS_ITS | Clinical Summary ---
[place] [address] Care Team Providers Care Coffee Host Name Role Phone Javier Ramos MD Primary Care Provider [phone] Social History Tobacco Use Types Packs/Day Years Used Date Smoking Tobacco: Never Assessed Sex and Gender Information Value Date Recorded Sex Assigned at Not on file Gender Identity Not on file Sexual Orientation Not on file Plan of Treatment Health Maintenance Due Date Last Done Comments CT Colonography 1957 Colonoscopy 1957 Colorectal Cancer Screening 1957 FIT DNA 1957 FIT 1957 Sigmoidoscopy (10 year) with FIT yearly 1957 Sigmoidoscopy 1955 Hepatitis C Screening 1975 Lipid Screening 1975 Tetanus/Diphtheria/Pertussis Vaccines (1 - Tdap) 07/29 Pneumoccocal Vaccine: 50+ (1 of 1 - PCV) 2007 Zoster vaccine (1 of 2) 2007 Advance Directive 2012 Covid-19 Vaccine (1 - 2023- season) 2024 Influenza (Flu) vaccine (1 o f 1 - Influenza standard series) 07/09/2024 Care Teams Coffee Host Relationship Specialty Start Date End Date Javier Ramos MD [address] [place] [address] DR HARTMAN, PRISCILLA [id number] PCP - General 11/05/10
[2024-12-22 11:09] LABS: Estimated Average Glucose 117 mg/dL; Hemoglobin A1C 142.8677 umol/L; Hemoglobin A1c % 5.7 % (<6.0); Total Hemoglobin (HGBA1C) 3633.8039 umol/L
[2024-12-22 11:10] LABS: Basophils Absolute Auto 0.1 X10*3/uL (0.0-0.2); Basophils Percent Auto 1.2 % (0-2); Eosinophils Absolute Auto 0.6 X10*3/uL (0.0-0.4); Hematocrit 42.5 % (42.0-52.0); Hemoglobin 13.9 g/dl (14.0-18.0); Imm Gran Abs Auto 0.04 X10*3/uL (0.00-0.03); Imm Gran Pct Auto 0.4 % (0.0-0.4); Lymphocytes Percent Auto 18.8 % (20-40); Mean Corpuscular HGB Conc 32.7 g/dl (31.0-36.0); Mean Corpuscular Hemoglobin 30.5 pg (27.0-33.0); Mean Corpuscular Volume 93.4 fL (80.0-98.0); Mean Platelet Volume 12.1 fL (9.4-12.4); Monocytes Absolute Auto 1.1 X10*3/uL (0.1-1.2); Monocytes Percent Auto 10.6 % (2-11); Neutrophils Absolute Auto 6.6 x10*3/uL (2.0-8.3); Platelet Count 209 X10*3/uL (160-400); Red Blood Count 4.55 X10*6/uL (4.60-5.80); Red Cell Distribution Width 12.5 % (11.0-16.0); White Blood Count 10.5 X10*3/uL (4.8-10.8)
[2024-12-22 11:32] LABS: PSA,Total (Free>4and<10) 5.67 ng/mL (0.00-4.00)
[2024-12-22 11:39] LABS: Alanine Aminotransferase 39 U/L (0-40); Albumin Level 3.7 g/dL (3.5-5.0); Alkaline Phosphatase 75 U/L (39-117); Anion Gap 9 (12-20); Aspartate Amino Transferase 32 U/L (5-37); Bilirubin Total 0.5 mg/dL (0.0-1.0); Blood Urea Nitrogen 26 mg/dL (9-16); Calcium 8.2 mg/dL (8.4-10.2); Carbon Dioxide 24 mmol/L (22-29); Chloride 109 mmol/L (96-108); Cholesterol 109 mg/dL (<200); Estimated Glomerular Filt Rate > 60; Glucose Fasting 106 mg/dL (60-99); HDL Cholesterol 48 mg/dL (>40); LDL Cholesterol Calculated 49 mg/dL (<100); Potassium 4.2 mmol/L (3.3-5.1); Sodium 138 mmol/L (135-145); Total Protein 6.8 g/dL (6.5-8.0); Triglycerides 64 mg/dL (<150)
[2024-12-22 11:46] LABS: Creatinine Urine 117.89 mg/dL; Microalbumin Urine < 5.0 mg/L
[2024-12-25 12:14] LABS: Free Prostate Spec Ag 1.3 ng/mL; Percent Free Prostate Spec Ag 24 % (calc) (>25); Prostate Specific Ag Total 5.4 ng/mL (< OR = 4.0)
== END 2024-12-22 07:01 | disposition home or self-care (01) ==
LOC: HO.LNP 07:00
PROVIDERS: Visit Provider Internal Medicine
DX: Z00.00 Encounter for general adult medical examination without abnormal findings (principal); I10 Essential (primary) hypertension; R73.03 Prediabetes; Z12.5 Encounter for screening for malignant neoplasm of prostate
CPT/HCPCS: 80053; 80061; 81003; 82043; 82570; 83036; 84153; 84154; 85025

== ENCOUNTER → 2025-03-23 08:07 | Outpatient (REF) | payer BC, SELFPAY ==
--- NOTE | 2025-03-23 08:09 | CA_ITS ---
Transthoracic Echocardiogram Patient (Last, First, Middle): Bradley Roque L Gender: Male Date of : 1955 Age: 69 Procedure Date: 03/23/2025 Procedure Type: Transthoracic Echocardiogram Location: OP Height: 170. cm Weight: 90.72 kg BSA: 2.02 m2 Heart Rate: 44 bpm BP: 128 / 70 mmHg Software Engineering Specialist: MARGARETTE Referring MD: Deepak Shirley MD Tile Mechanic: Deepak Shirley MD Symptoms: I48.0 - Paroxysmal atrial fibrillation Study Quality: Adequate ECG Rhythm: Bradycardia Conclusions: - 1. Normal LV ejection fraction 65-70% with pseudonormal filling pattern 2. Mildly dilated left atrium 3. Normal cardiac valvular Dopplers 4. Normal RV systolic pressure 5. Mildly dilated ascending aorta at 4.1 cm 5. No gross pericardial effusion Findings Left Ventricle Normal left ventricular size, thickness, and systolic function. The visually estimated ejection fraction is between 65-70%. Spectral Doppler is indicative of a pseudonormal filling pattern. Right Ventricle Normal right ventricular cavity size and systolic function. Atria The left atrium is mildly dilated. There is no evidence of interatrial shunt. The right atrium is normal in size. Aortic Valve There is mild calcification of the aortic valve. There is no aortic valve stenosis. There is no aortic valve regurgitation. Mitral Valve Normal mitral valve structure and function. There is trace mitral valve regurgitation. There is no mitral valve stenosis. Pulmonic Valve The pulmonic valve is likely normal. Tricuspid Valve Normal tricuspid valve structure. There is trace tricuspid valve regurgitation. The right ventricular systolic pressure is normal. The right ventricular systolic pressure is 18 mmHg. Normal right atrial pressure. There is no evidence of pulmonary hypertension. Great Vessels The pulmonary artery was not well visualized. There is mild dilatation of the ascending aorta measuring 4.10 cm. Venous The inferior vena cava is normal in size and collapses greater than 50% with inspiration. Pericardium/Pleural There is no evidence of pericardial effusion. Prior Study Comparison Changes noted compared to prior study dated: 05/21/2023. left ventricular hypertrophy is not noted and left atrium is only mildly dilated. Measurements 2D Linear Measurements IVSd: 1.01 0.6-0.9/0.6-1.0 cm LVIDd: 5.08 3.9-5.3/4.2-5.9 cm LVIDd Index: 2.51 2.4-3.2/2.2-3.1 cm/m2 LVIDs: 3.22 2.0-3.6 cm LVPWd: 1.01 0.7-1.1 cm LA Diam: 4.30 2.7-3.8/3.0-4.0 cm LAIDs Index: 2.13 1.5-2.3 cm/m2 LV Mass: 235.89 67-162/88-224 g LV Mass Index: 116.78 43-95/49-115 g/m2 LVOT Diam: 2.20 3.0+(-)1.3 cm 2D Systolic Function EF 4C: 64.60 >55% EF 2C: 69.70 >55% EF BiP: 67.90 >55% Mitral Valve MV Pk E: 0.82 MV PK A: 0.60 MV Decel Time: 203.00 E/A: 1.40 E'Lateral: 8.70 E'Medial: 6.74 E/E' Med: 12.20 E/E' Lat: 9.50 PHT: 59.00 MVA PHT: 3.73 Decel [place]: 4.06 Aortic Valve AoV Pk Thaddeus: 1.27 AoV Mn Thaddeus: 0.98 AoV VTI: 0.39 AoV Pk Grad: 6.00 Aov Mn Grad: 4.00 JAYY Cont.VTI: 2.48 LVOT LVOT Pk Thaddeus: 0.88 LVOT Mn Thaddeus: 0.65 LVOT VTI: 0.25 LVOT Pk Grad: 3.00 LVOT Mn Grad: 2.00 LVOT Diam: 2.20 LVOT Area: 3.80 Diastolic Function MV Pk E: 0.82 MV Pk A: 0.60 E/A: 1.40 E'Medial: 6.74 E/E' Med: 12.20 E' Laterial: 8.70 E/E' Lat: 9.50 Right Ventricle TAPSE (mm): 31.10 TVS' Thaddeus: 12.30 Tricuspid Valve TR Pk Thaddeus: 1.94 TR Pk Grad: 15.00 RA Press: 3.00 RVSP: 18.00 Great Vessels Aorta Sinus of Valsalva: 3.90 2.0-3.5 cm Ao Asc: 4.10 2.1-3.4 cm Pulmonary Valve PV Pk Thaddeus: 0.79 Peak PV Grad: 2.00 Updated in Other Vendor System with Status of Final Deepak Shirley MD electronically signed on 03/23/2025 4:46:11 PM with status of Final
== END ==
LOC: HO.CARD 08:07
PROVIDERS: PCP Internal Medicine; Visit Provider Internal Medicine Cardiovascular Disease
DX: I48.0 Paroxysmal atrial fibrillation (principal)
CPT/HCPCS: 93306

== ENCOUNTER → 2025-03-23 08:09 | Outpatient (BNV) | payer BC, SELFPAY | PROVIDERS: PCP Internal Medicine; Visit Provider Internal Medicine Cardiovascular Disease | DX: I48.0 Paroxysmal atrial fibrillation (principal); I51.7 Cardiomegaly; I35.8 Other nonrheumatic aortic valve disorders; I77.810 Thoracic aortic ectasia | CPT/HCPCS: 93306 ==

== ENCOUNTER 2025-03-29 14:57 | Outpatient (AMB) | payer BC, SELFPAY ==
[2025-03-29 15:00] VITALS: BP 122/74; PULSE 58; BMI 33.1
--- NOTE | 2025-03-29 15:00 | A.OFFVIS_ITS ---
Vital Signs 03/29/25 15:00 Height 5 ft 6 in Weight 205 lb 0.478 oz BMI 33.1 BP 122/74 Blood Pressure Location Lt brachial Position Sitting Pulse 58 Intake Visit Reasons: 1 yr follow up Intake Note: 1 year follow-up with ekg after echo feeling good Administrative Resident Required: No Allergies No Known Drug Allergies Allergy (Severe, Verified 01/31/24 15:10) none bee pollen [bee stings] Allergy (Intermediate, Verified 01/31/24 15:10) Swelling doritos chips Adverse Reaction (Intermediate, Uncoded 08/02/23 14:52) lower extremity edema, rectal bleeding Medication List - Last Reconciled 03/29/25 by Deepak Shirley MD amlodipine 10 mg PO DAILY atorvastatin 40 mg PO DAILY carvedilol (Coreg) 6.25 mg PO Q12H 90 days dronedarone (Multaq) 400 mg PO BID 90 days [fish oil PO] multivitamin 1 tab PO DAILY rivaroxaban (Xarelto) 20 mg PO DAILY tamsulosin 0.4 mg PO BID valsartan-hydrochlorothiazide 160-12.5 mg 1 tab PO ONCE HPI Comments Details: Bradley comes for follow-up. He said he is not able to maintain adequate activity level and not able to exercise as he gets muscle aches when he tries to push himself. He says this is since starting Multaq therapy. He gets muscle aches when he is exercising be on a sudden level. He notices heart rate can not mount a response. He said he has not had any issues with statin therapy and there has been no change in his symptoms. He has not had any recurrent atrial fibrillation episodes. Denies any heart failure symptoms. No orthopnea, PND, leg edema. Denies any exertional chest pain. Takes all his medications. LDL is well optimized. Blood pressure is well optimized on current therapy. He complains of intermittent leg edema more prominently on the left leg very had knee injury before. [facility] Medical History (Updated 03/29/25 @ 16:17 by Deepak Shirley MD) CAD (coronary artery disease) Paroxysmal atrial fibrillation Persistent atrial fibrillation HTN (hypertension) Surgical History History of anterior cruciate ligament surgery H/O colonoscopy Hx of repair of right rotator cuff Social History Are you a primary medicare contact specialist to a significant other at home: No Do you presently have visiting nurse or other home services: No Patient Tobacco Use Status: Never used Tobacco Tobacco use type: Pipe Years Smoked: 20 years Current occupational status: employed Review of Systems Const Denies chills, Denies fatigue, Denies fever(s), Denies frequent falls, Denies weakness, Denies weight gain and Denies weight loss ENT Denies dizziness Card Denies chest pain, Denies leg edema, Denies lightheadedness, Denies palpitations, Denies dyspnea, Denies dyspnea on exertion, Denies orthopnea and Denies other (loss of consciousness) Resp Denies cough, Denies dyspnea and Denies dyspnea on exertion GI Denies hematochezia and Denies change in stool character Musc Denies abnormal gait, Denies muscle weakness, Denies numbness, Denies radiating pain into limb and Denies tingling Neuro Denies Abnormal speech present, Denies abnormal gait, Denies dizziness, Denies frequent falls, Denies numbness, Denies tingling and Denies weakness Endo Denies fatigue and Denies palpitations Physical Exam Vital Signs: Last Vital Signs Pulse 58 03/29/25 15:00 BP 122/74 03/29/25 15:00 BMI result Body Mass Index 33.1 Const General: cooperative, comfortable, no acute distress, well developed, alert, awake, Physically active and well groomed Nutritional Appearance: average body habitus and well nourished Orientation/consciousness: patient oriented x3 Limitations: no limitations HEENT Head: Yes normocephalic and Yes atraumatic Neck Neck: Yes trachea midline, Yes supple and Yes no JVD Resp Effort & Inspection: normal respiratory effort Auscultation: clear to auscultation bilaterally Cardio Jugular venous distension: no JVD Rate: regular rate and bradycardic Rhythm: regular rhythm Heart sounds: S1 normal heart sound present, S2 normal heart sound present, no click, no gallops, no murmurs and no rubs Peripheral pulses: Peripheral pulses 2+ throughout GI Auscultation: normal bowel sounds Skin General skin exam: no rashes or lesions noted Neuro General: patient oriented x3 and no focal motor deficits Speech: No Abnormal speech present Extrem General: Yes no clubbing, cyanosis or edema Psych Appearance: grossly normal Office Procedures EKG Details: EKG shows sinus bradycardia with bifascicular block, unchanged [id number], Complete Assessment & Plan Assessment & Plan (1) Paroxysmal atrial fibrillation: Comment: seeing Dr. Shirley- prior to colonoscopy Code(s): I48.0 - Paroxysmal atrial fibrillation Category: Medical Plan: Paroxysmal atrial fibrillation highly symptomatic has done very well with rhythm control approach will continue pursue rhythm control approach. However he is having side effects to Multaq therapy with reduced functional capacity due to chronotropic incompetence. Will refer him to electrophysiology for consideration for ablation. Till then I have advised him to continue Multaq therapy. Increase activity level. Continue full oral anticoagulation, currently on Xarelto 20 mg daily. Semi annual renal function test should be pursued. Quarterly EKGs required while on Multaq therapy. Continue aggressive blood pressure control, see below. (2) CAD (coronary artery disease): Code(s): I25.10 - Atherosclerotic heart disease of [place] coronary artery without angina pectoris Category: Medical Plan: Diffuse CAD with nonobstructive disease. Currently not having any symptoms related to it. Continue maintain activity level as tolerated. Currently on full oral anticoagulation with Xarelto in his advised to avoid aspirin therapy. Continue aggressive risk factor modification. Blood pressure is well optimized. Continue statin therapy with well optimized LDL with target goal LDL less than 70 mg/dL. (3) HTN (hypertension): Code(s): I10 - Essential (primary) hypertension Category: Medical Plan: Hypertension which is currently well optimized advised to monitor blood pressure at home maintain a log. Goal blood pressure less than 130/84. Low-salt diet was discussed. He has done well overall with current therapy and will continue the same. Will follow up in the clinic in 1 year's time, sooner p.r.n.. Thank you for allowing me to partake in his care Medications: Changed From valsartan-hydrochlorothiazide 160-12.5 mg 1 tab PO BID 180 tabs 3RF I10 - Essential (primary) hypertension To valsartan-hydrochlorothiazide 160-12.5 mg 1 tab PO ONCE I10 - Essential (primary) hypertension Coding Level of Care Code Est Pt Level 4 (86207) Complex EM visit Add On G2211 Diagnoses Paroxysmal atrial fibrillation I48.0 CAD (coronary artery disease) I25.10 HTN (hypertension) I10 CPT Codes EKG - CPT: 15621-[id number], Complete ([id number])
== END 2025-03-29 15:25 | disposition home or self-care (01) ==
LOC: HO.HCS 14:58
PROVIDERS: PCP Internal Medicine; Visit Provider Internal Medicine Cardiovascular Disease
DX: I48.0 Paroxysmal atrial fibrillation (principal); I25.10 Atherosclerotic heart disease of native coronary artery without angina pectoris; I10 Essential (primary) hypertension
CPT/HCPCS: 93010; 99214

== ENCOUNTER → 2025-03-29 14:57 | Outpatient (BNVA) | payer BC, SELFPAY | PROVIDERS: PCP Internal Medicine; Visit Provider Internal Medicine Cardiovascular Disease | DX: I48.0 Paroxysmal atrial fibrillation (principal) | CPT/HCPCS: 93005 ==

== ENCOUNTER 2025-05-29 09:46 | Outpatient (REF) | payer BC, SELFPAY ==
--- OUTSIDE RECORDS SUMMARY | 2025-05-29 10:31 | XMS_ITS | Clinical Summary ---
[place] [address] Care Team Providers Care Micro Lab Analyst Name Role Phone Javier Ramos MD Primary Care Provider [phone] Social History Tobacco Use Types Packs/Day Years Used Date Smoking Tobacco: Never Assessed Sex and Gender Information Value Date Recorded Sex Assigned at Not on file Legal Sex Male 7:22 AM EST Gender Identity Not on file Sexual Orientation [...] o f 1 - Influenza standard series) 07/09/2025 Insurance [facility] Care Teams Micro Lab Analyst Relationship Specialty Start Date End Date Javier Ramos MD [address] [place] [address] [place] [address] PCP - General 11/05/10
[2025-05-29 10:34] LABS: Blood Urea Nitrogen 14 mg/dL (9-16); Estimated Glomerular Filt Rate > 60
== END 2025-05-29 09:47 | disposition home or self-care (01) ==
LOC: HO.LNP 09:46
PROVIDERS: Visit Provider Internal Medicine
DX: I48.91 Unspecified atrial fibrillation (principal)
CPT/HCPCS: 82565; 84520